=== PATIENT | female | born 1935 | race African-American/Black ===

== ENCOUNTER 2018-06-30 04:58 | Emergency (ER) | payer MEDICARE ==
[~2018-06-30] VITALS: Ht 157.5 cm; Wt 67.1 kg
--- OUTSIDE RECORDS SUMMARY | 2018-06-30 05:00 | XMS REPORT | Clinical Summary ---
Author Author SHANA [employer] [facility] [employer] [facility] Address Unknown Phone Unavailable Care Team Providers Care Bending Machine Set Up Operator Name Role Phone Ilda Christy MD PCP Allergies No Known Allergies Medications End Date Status Medication Sig Dispensed Refills Start Date Active amLODIPine (NORVASC) 10 Take 10 mg by 0 MG tablet mouth daily. Active atenolol (TENORMIN) 50 MG Take 50 mg by 0 tablet mouth 2 (two) times daily . Active flecainide (TAMBOCOR) 100 Take 100 mg 0 MG tablet by mouth 2 (two) times daily. Active pravastatin (PRAVACHOL) Take 80 mg by 0 80 MG tablet mouth daily. Active warfarin (COUMADIN) 2.5 Take 2.5 mg 0 MG tablet by mouth daily Every Tuesday, Tuesday, Tuesday, tue and tuesday . Active warfarin (COUMADIN) 5 MG Take 5 mg by 0 tablet mouth daily. 07/08/2018 Active acetaminophen-codeine Take 1 tablet 30 tablet 0 (TYLENOL #3) 300-30 mg by mouth 9 per tablet every 4 (four) hours as needed for up to 10 days. Max Daily Amount: 6 tablets Active Problems Problem Noted Date Periumbilical mass 06/28/2018 Biliary colic 12/26/2013 Encounters Care Team Description Date Type Specialty Bipin Cadet MD BIOPSY/EXCISION,SOFT TISSUE TORSO ANTERIOR 06/28/2018 Surgery Shyla Vergara MD 06/28/2018 Anesthesia Event Bipin Cadet MD 06/28/2018 Hospital Encounter Resource, Oqia Preadmit Phone 06/21/2018 Hospital Pre-Admission Testing Encounter after 06/29/2017 Social History Date Tobacco Use Types Packs/Day Years Used Quit: 2013 Former Smoker 0.5 55 Smokeless Tobacco: Never Used Tobacco Cessation: Ready to Quit: No; Counseling Given: Yes Alcohol Use Drinks/Week oz/Week Comments No Sex Assigned at Date Recorded Not on file Industry Job Start Date Occupation Not on file Not on file Not on file Travel End Travel History Travel Start No recent travel history available. Last Filed Vital Signs Time Taken Vital Sign Reading 06/28/2018 11:35 AM CDT Blood Pressure 142/71 06/28/2018 11:35 AM CDT Pulse 53 06/28/2018 11:35 AM CDT Temperature 36.2 C (97.2 F) 06/28/2018 11:35 AM CDT Respiratory Rate 16 06/28/2018 11:35 AM CDT Oxygen Saturation 94% - Inhaled Oxygen - Concentration 06/28/2018 8:02 AM CDT Weight 58.1 kg (128 lb 1.6 oz) 06/28/2018 8:02 AM CDT Height 157.5 cm (5' 2") 06/28/2018 8:02 AM CDT Body Mass Index 23.43 Plan of Treatment Not on file Procedures Comments Procedure Name Priority Date/Time Associated Diagnosis BIOPSY/EXCISION,SOFT 06/28/2018 Abdominal wall mass TISSUE TORSO ANTERIOR 8:45 AM CDT after 06/29/2017 Results Not on fileafter 06/29/2017 Insurance Payer Benefit Subscriber ID Type Phone Address Plan / Group [facility] xxxxxxxxxxx MEDICARE ADV Advance Directives For more information, please contact: [facility] [address] [place] [address] Date Inactivated Comments Code Status Date Activated 06/28/2018 2:34 PM Full Code 06/28/2018 7:49 AM This code status was determined by: Patient 12/26/2013 2:31 PM Full Code 12/26/2013 7:34 AM This code status was determined by: Patient
[2018-06-30] MEDS ORDERED: PANTOPRAZOLE 40 MG 10ML VIAL IV STA (05:19)
[2018-06-30] MEDS ORDERED: SODIUM CHLORIDE 0.9% 1000ML 1,000 ML IV STA (05:19)
[2018-06-30] MEDS ORDERED: ONDANSETRON HCL INJ 2MG/ML 2ML 2 MG/ML VIAL IV STA (05:19)
[2018-06-30] MEDS ORDERED: PANTOPRAZOL 40MG/SOD CHL 0.9% 50 ML IV ONE (05:44)
[2018-06-30] MEDS ORDERED: DIATRIZOATE MEGL/DIATRIZOA SOD 30 ML BTL PO ONE (05:54)
[2018-06-30 06:09] LABS: BASOPHILS # (AUTO) 0.1 (0.0-0.1); BASOPHILS % 0.6 % (0.0-1.0); EOSINOPHILS # (AUTO) 0.1 (0.0-0.4); EOSINOPHILS % 0.9 % (0.0-6.0); HEMATOCRIT 43.1 % (34.2-44.1); HEMOGLOBIN 13.8 g/dL (12.0-16.0); INR 0.91; LYMPHOCYTES # (AUTO) 2.4 (1.0-3.2); LYMPHOCYTES % 20.2 % (18.0-39.1); MEAN CORPUSCULAR HEMOGLOBIN 28.5 pg (28-32); MONOCYTES % 8.3 % (4.4-11.3); NEUTROPHILS # (AUTO) 8.1 (2.1-6.9); NEUTROPHILS % 69.5 % (38.7-80.0); PLATELET COUNT 360 x10e3/uL (140-360); PROTHROMBIN TIME 12.7 seconds (11.9-14.5); RED BLOOD COUNT 4.84 x10e6/uL (3.6-5.1); RED CELL DISTRIBUTION WIDTH 14.5 % (11.7-14.4)
[2018-06-30 06:10] LABS: PARTIAL THROMBOPLASTIN TIME 30.6 seconds (23.8-35.5)
[2018-06-30 06:14] LABS: BILIRUBIN,URINE NEGATIVE (NEGATIVE); CLARITY,URINE CLEAR (CLEAR); COLOR,URINE YELLOW (YELLOW); KETONES,URINE TRACE (NEGATIVE); LEUKOCYTE ESTERASE ,URINE NEGATIVE (NEGATIVE); NITRITE,URINE NEGATIVE (NEGATIVE); PROTEIN,URINE DIPSTICK NEGATIVE (NEGATIVE); URINE UROBILINOGEN 0.2 mg/dL (0.2 - 1)
[2018-06-30] MEDS ORDERED: METOPROLOL TARTRATE INJ 1 MG/ML VIAL IV NR ×2 (06:15→06:45)
[2018-06-30 06:16] LABS: ALBUMIN 3.7 g/dL (3.5-5.0); ALBUMIN/GLOBULIN RATIO 0.8 (0.8-2.0); ANION GAP 16.8 mmol/L (8-16); CALCIUM 10.4 mg/dL (8.4-10.2); CREATININE, SERUM 1.83 mg/dL (0.57-1.11); MAGNESIUM 2.1 MG/DL (1.3-2.1); POTASSIUM 3.8 mmol/L (3.5-5.1)
[2018-06-30 06:20] LABS: BACTERIA,URINE RARE /HPF; EPITHELIAL CELLS,URINE MODERATE /LPF; RBC,URINE 0-5 /HPF (0-5); WBC,URINE (MAN) 0-5 /HPF (0-5)
[2018-06-30] MEDS ORDERED: FLUTICASONE PRO16 GM (06:41)
[2018-06-30] MEDS ORDERED: AMLODIPINE BESY10 MG PO (06:41)
[2018-06-30] MEDS ORDERED: TYLENOL # 31 EA PO (06:41)
[2018-06-30] MEDS ORDERED: FLONASE (06:41)
[2018-06-30] MEDS ORDERED: OMEPRAZOLE20 MG PO (06:41)
[2018-06-30] MEDS ORDERED: PRAVASTATIN SOD10 MG PO (06:41)
[2018-06-30] MEDS ORDERED: ATENOLOL50 MG PO (06:41)
--- NOTE | 2018-06-30 06:49 | Diagnostic Imaging Report ---
EXAMINATION: CHEST SINGLE (PORTABLE) INDICATION: ^N/V ABD PAIN COMPARISON: None FINDINGS: AP view TUBES and LINES: None. LUNGS: Lungs are well inflated. Patchy airspace opacities bilaterally with platelike atelectasis in the left lung base. PLEURA: No pleural effusion or pneumothorax. HEART AND MEDIASTINUM: The cardiomediastinal silhouette is unremarkable. BONES AND SOFT TISSUES: No acute osseous lesion. Right humeral head deformity. Soft tissues are unremarkable. UPPER ABDOMEN: No free air under the diaphragm. IMPRESSION: Patchy airspace opacities bilaterally especially in the left lung base with platelike atelectasis in the left lung base. This likely represents pneumonia. Signed by: Dr. Brayden Bellamy M.D. on 06/30/2018 6:45 AM
[2018-06-30 06:53] LABS: B-TYPE NATRIURETIC PEPTIDE2 247.3 pg/mL (0-100)
--- NOTE | 2018-06-30 07:00 | NUR ---
ASSUMED CARE AT THIS TIME. PATIENT AWAKE AND ALERT LAYING IN BED. RESP EVEN AND UNLABORED. SKIN WARM AND DRY. NO SIGNS OF ACUTE DISTRESS NOTED AT THIS TIME. DENIES ANY C/O AT THIS TIME.
[2018-06-30] MEDS ORDERED: CEFTRIAXONE SOD 1 GM/NS 50 ML 50 ML IV ONE (07:15)
[2018-06-30] MEDS ORDERED: AZITHROMYCIN 500MG/NS 250 ML 250 ML IV ONE (07:15)
[2018-06-30 07:48] LABS: CREATINE KINASE MB 2.2 ng/mL (0-5.0)
--- NOTE | 2018-06-30 07:59 | NUR ---
Katherine Orosco RN (guidance services coordinator) @ [facility] called with approval at this time. Accepting MD Dr. Asif Espinosa. Pt bed assignment [id number]. #for report [phone].
--- NOTE | 2018-06-30 08:05 | NUR ---
[facility] called for transport at this time. Spoke with Vidal. ETA 45 min
--- NOTE | 2018-06-30 08:24 | NUR ---
REPORT CALLED TO [facility], SPOKE WITH AIMEE,RN @ [facility] ROOM 962 ACCEPTING DOCTOR: DR Asif SEGAL
--- NOTE | 2018-06-30 08:31 | Diagnostic Imaging Report ---
EXAM: CT Abdomen and Pelvis WITHOUT contrast INDICATION: Nausea and vomiting, abdominal pain COMPARISON: None. TECHNIQUE: Abdomen and pelvis were scanned utilizing a multidetector helical scanner from the lung base to the pubic symphysis without administration of IV contrast. Absence of intravenous contrast decreases sensitivity for detection of focal lesions and vascular pathology. Coronal and sagittal reformations were obtained. Routine protocol was performed. Dose modulation, iterative reconstruction, and/or weight based adjustment of the mA/kV was utilized to reduce the radiation dose to as low as reasonably achievable. IV CONTRAST: None. ORAL CONTRAST: 25 cc Gastrografin RADIATION DOSE: Total DLP: 199.78 mGy*cm Estimated effective dose: (DLP x 0.015 x size factor) mSv COMPLICATIONS: None FINDINGS: LINES and TUBES: None. LOWER THORAX: Partially visualized groundglass opacity at the left lung base may represent atelectasis or pneumonia. Heart size normal. Small hiatus hernia. HEPATOBILIARY: There is a calcified granuloma in the liver. No focal hepatic lesions. No biliary ductal dilation. GALLBLADDER: Surgical absence of the gallbladder with cholecystectomy clips. SPLEEN: No splenomegaly. PANCREAS: No focal masses or ductal dilatation. ADRENALS: No adrenal nodules KIDNEYS/URETERS: There is marked left hydronephrosis with dilatation of the ureter that can be traced into the left pelvis near the uterus. Specific etiology of apparent distal ureteral obstruction is not determined. There is cortical scarring of the lateral right kidney with a 1.3 cm hypodensity, with appearance and internal density measurement suggesting cyst. No other contour deforming cystic or solid mass lesions. No stones. GI TRACT: There is diffuse mild distention of small bowel with distal small bowel loops measuring up to 3.2 cm diameter. In the distal jejunum there is a discrete 1.9 cm filling defect in a small bowel loop (series 2, image 42; series 301, image 39) which is indeterminate, likely representing ingested material although small bowel polyp is also a consideration. There is a large volume of stool throughout the colon and rectum. The appendix is not conspicuously identified. There are colonic diverticula with no CT evidence for acute diverticulitis. PELVIC ORGANS/BLADDER: Urinary bladder appears unremarkable. The uterus is retroverted with calcifications suggesting fibroid uterus. No discrete abnormal mass or fluid collection in the pelvis. LYMPH NODES: No dominant lymph node mass is seen in the abdomen, retroperitoneum or pelvis, VESSELS: The abdominal aorta is atherosclerotic with extensive calcified plaque distally and extending into the iliac arteries. No abdominal aortic aneurysm. PERITONEUM / RETROPERITONEUM: No pneumoperitoneum or ascites. BONES: No acute or suspicious bony lesions. Degenerative changes are seen in the lumbar spine. Lumbar scoliosis is noted. SOFT TISSUES: Superficial surrounding soft tissue shows an apparent left femoral hernia containing fat. In the anterior midline lower abdomen and pelvis there is subcutaneous stranding and subcutaneous air likely related to recent surgery. No discrete drainable fluid collection is seen. IMPRESSION: 1. Diffuse small bowel distention with large volume of stool throughout the colon. In view of history of recent surgery, this likely represents small bowel ileus, less likely early distal obstruction. Correlation with clinical findings suggested. 2. Marked left hydronephrosis and dilatation of the left ureter traced to the pelvic level near the uterus. Etiology of apparent distal ureteral obstruction is not determined. 3. 1.9 cm filling defect in distal jejunal loop may be related to ingested material or small bowel polyp. 4. Airspace opacity at the left lung base may represent atelectasis or pneumonia. 5. Small left femoral hernia containing fat. 6. Subcutaneous air in the anterior midline lower abdomen and pelvis likely related to recent surgery. Correlation with surgical history recommended. Staff: [place] Signed by: Dr. Scott Nieto M.D. on 06/30/2018 8:27 AM
--- NOTE | 2018-06-30 08:56 | NUR ---
EMS arrival at this time.
[2018-06-30 09:04] VITALS: BP 125/85
--- NOTE | 2018-06-30 09:05 | NUR ---
Face sheet and MOT faxed to the transfer center @[phone]
== END 2018-06-30 09:09 | disposition short-term general hospital (02) ==
LOC: ER 04:58
DX: R10.84 Generalized abdominal pain (principal); R11.2 Nausea with vomiting, unspecified; J15.9 Unspecified bacterial pneumonia; N28.9 Disorder of kidney and ureter, unspecified; I48.0 Paroxysmal atrial fibrillation
CPT/HCPCS: 36415; 71045; 74176; 80053; 81001; 82550; 82553; 83605; 83690; 83735; 83880; 84484; 85025; 85610; 85730; 87040; 87086; 93005; 96374; 99284; J0456; J0696; J2405; J7030

== ENCOUNTER 2018-08-15 10:14 | Emergency (ER) | payer MEDICARE ==
[~2018-08-15] VITALS: Ht 157.5 cm; Wt 67.1 kg
[~2018-08-15 10:14] MED LIST: AMLODIPINE BESY10 MG PO; ATENOLOL50 MG PO; FLONASE; FLUTICASONE PRO16 GM; OMEPRAZOLE20 MG PO; PRAVASTATIN SOD10 MG PO; TYLENOL # 31 EA PO
--- OUTSIDE RECORDS SUMMARY | 2018-08-15 10:17 | XMS REPORT | Clinical Summary ---
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 Active pravastatin (PRAVACHOL) Take 80 mg by 0 80 MG tablet mouth daily. Active omeprazole (PRILOSEC) 20 Take 20 mg by 0 MG capsule mouth daily. Active traMADol (ULTRAM) 50 mg Take 50 mg by 0 tablet mouth 2 (two) times daily as needed for Pain. Active loratadine (CLARITIN) 10 Take 10 mg by 0 mg tablet mouth daily as needed for Allergies. Active fluticasone (FLONASE) 50 1 spray by 0 mcg/actuation nasal spray Nasal route daily as needed for Rhinitis. Active flecainide (TAMBOCOR) 100 Take 0.5 0 201 MG tablet tablets (50 9 mg total) by mouth 2 (two) times daily. Active warfarin (COUMADIN) 5 MG Take 2 0 201 tablet tablets (10 9 mg total) by mouth daily 7.5 mg daily except Tuesday and . 5 mg on Tuesday and . Active bisacodyl (DULCOLAX) 10 Place 1 0 mg suppository suppository 9 (10 mg total) rectally daily as needed (for constipation) . Active docusate sodium (COLACE) Take 1 0 100 MG capsule capsule (100 9 mg total) by mouth 3 (three) times daily Do not give if diarrhea present. Active polyethylene glycol Take 17 g by 0 (GLYCOLAX) 17 gram packet mouth daily 9 Do not give if diarrhea present. 07/12/2018 Discontinued amLODIPine (NORVASC) 10 Take 10 mg by 0 MG tablet mouth daily. 07/12/2018 Discontinued flecainide (TAMBOCOR) 100 Take 100 mg 0 MG tablet by mouth 2 (two) times daily. 06/30/2018 Discontinued warfarin (COUMADIN) 2.5 Take 2.5 mg 0 MG tablet by mouth daily Every Tuesday, Tuesday, Tuesday, tue and tuesday . 06/30/2018 Discontinued warfarin (COUMADIN) 5 MG Take 5 mg by 0 tablet mouth daily. 06/30/2018 Discontinued acetaminophen-codeine Take 1 tablet 30 tablet 0 (TYLENOL #3) 300-30 mg by mouth 9 per tablet every 4 (four) hours as needed for up to 10 days. Max Daily Amount: 6 tablets 07/12/2018 Discontinued warfarin (COUMADIN) 5 MG Take 5 mg by 0 tablet mouth 7.5 mg daily except Tuesday and . 5 mg on Tuesday and . Active Problems Problem Noted Date Gastroesophageal reflux disease without esophagitis 07/27/2018 Acute abdominal pain 07/24/2018 Physical deconditioning 07/10/2018 Uterine mass 07/03/2018 SBO (small bowel obstruction) (HCC) resolved 06/30/2018 Paroxysmal atrial fibrillation with rapid ventricular response 06/30/2018 Hydronephrosis of left kidney 06/30/2018 Hydroureter, left 06/30/2018 Intractable vomiting with nausea 06/30/2018 Periumbilical mass s/p excision on 06/28/18 06/30/2018 Essential hypertension 06/30/2018 Hyperlipidemia 06/30/2018 History of transient ischemic attack (TIA) 06/30/2018 Bilateral atelectasis 06/30/2018 ANTHONY (acute kidney injury) 06/30/2018 CKD (chronic kidney disease) stage 3, GFR 30-59 ml/min 06/30/2018 Resolved Problems Problem Noted Date Resolved Date Periumbilical mass 06/28/2018 06/30/2018 Biliary colic 12/26/2013 06/30/2018 Encounters Care Team Description Date Type Specialty Rohit Wright MD Dhir, MD Megan Browning Rosemary, MD Acute abdominal pain (Primary Dx); Small bowel obstruction (HCC); Non-intractable vomiting with nausea, unspecified vomiting type; S/P abdominal surgery, follow-up exam 07/24/2018 [facility] General Internal Medicine - Encounter 07/27/2018 07/24/2018 Travel Neetu Vang MD Results 07/18/2018 Telephone Obstetrics and Gynecology Edda Blair MD 07/05/2018 Anesthesia Event Denis Vanegas MD CYSTOSCOPY 07/05/2018 Surgery Gopal Espinosa MD Quadri, Syed M., MD 06/30/2018 [facility] General Internal Medicine - Encounter 07/12/2018 06/30/2018 Travel 06/30/2018 Orders Only General Internal Medicine Oleksandr Cadet MD BIOPSY/EXCISION,SOFT TISSUE TORSO ANTERIOR 06/28/2018 Surgery Shyla Vergara MD 06/28/2018 Anesthesia Event Oleksandr Cadet MD 06/28/2018 Hospital Encounter Resource, Omt Preadmit Phone 06/21/2018 Hospital Pre-Admission Testing Encounter after 08/14/2017 Social History Date Tobacco Use Types Packs/Day [...] Vital Signs Time Taken Vital Sign Reading 07/27/2018 1:55 PM CDT Blood Pressure 107/52 07/27/2018 1:55 PM CDT Pulse 60 07/27/2018 1:55 PM CDT Temperature 36.1 C (97 F) 07/27/2018 1:55 PM CDT Respiratory Rate 18 07/27/2018 1:55 PM CDT Oxygen Saturation 99% - Inhaled Oxygen - Concentration 07/24/2018 1:21 AM CDT Weight 56.7 kg (125 lb) 07/24/2018 1:21 AM CDT Height 157.5 cm (5' 2") 07/24/2018 1:21 AM CDT Body Mass Index 22.86 Plan of Treatment Not on file Procedures Comments Procedure Name Priority Date/Time Associated Diagnosis RHYTHM STRIP - SCAN 07/31/2018 8:20 AM CDT BASIC METABOLIC PANEL (7) Routine 07/27/2018 1:23 PM CDT CBC W/PLT COUNT & AUTO Routine 07/27/2018 DIFFERENTIAL 5:12 AM CDT PROTHROMBIN TIME/INR Routine 07/27/2018 5:12 AM CDT CBC W/PLT COUNT & AUTO Routine 07/27/2018 DIFFERENTIAL 5:12 AM CDT BASIC METABOLIC PANEL (7) Routine 07/27/2018 5:12 AM CDT PROTHROMBIN TIME/INR Routine 07/26/2018 6:59 AM CDT MAGNESIUM Routine 07/26/2018 6:58 AM CDT BASIC METABOLIC PANEL (7) Routine 07/26/2018 6:58 AM CDT CBC W/PLT COUNT & AUTO Routine 07/25/2018 DIFFERENTIAL 3:52 AM CDT PROTHROMBIN TIME/INR Routine 07/25/2018 3:52 AM CDT CBC W/PLT COUNT & AUTO Routine 07/25/2018 DIFFERENTIAL 3:52 AM CDT BASIC METABOLIC PANEL (7) Routine 07/25/2018 3:52 AM CDT PHOSPHORUS Routine 07/24/2018 3:17 PM CDT MAGNESIUM Routine 07/24/2018 3:17 PM CDT PROTHROMBIN TIME/INR Routine 07/24/2018 8:42 AM CDT PT/APTT Routine 07/24/2018 8:42 AM CDT URINALYSIS W/ MICROSCOPIC STAT 07/24/2018 2:[address] ABDOMEN/PELVIS WITHOUT STAT 07/24/2018 IV CONTRAST 2:06 AM CDT CBC W/PLT COUNT & AUTO STAT 07/24/2018 DIFFERENTIAL 1:47 AM CDT BILIRUBIN, ADULT TOTAL STAT 07/24/2018 1:47 AM CDT LIPASE STAT 07/24/2018 1:47 AM CDT AST (SGOT) STAT 07/24/2018 1:47 AM CDT ALT (SGPT) STAT 07/24/2018 1:47 AM CDT CBC W/PLT COUNT & AUTO STAT 07/24/2018 DIFFERENTIAL 1:47 AM CDT BASIC METABOLIC PANEL (7) STAT 07/24/2018 1:47 AM CDT RHYTHM STRIP - SCAN 07/13/2018 1:31 PM CDT REPORT OF PROCEDURE - 07/13/2018 ENDOSCOPY SCAN 1:31 PM CDT RHYTHM STRIP - SCAN 07/13/2018 1:31 PM CDT RHYTHM STRIP - SCAN 07/13/2018 12:14 PM CDT BASIC METABOLIC PANEL (7) Routine 07/12/2018 4:47 AM CDT PROTHROMBIN TIME/INR Routine 07/12/2018 4:47 AM CDT POCT-GLUCOSE METER Routine 07/11/2018 9:47 PM CDT XR ABDOMEN 2 VIEWS FLAT STAT 07/11/2018 AND UPRIGHT 8:09 PM CDT BASIC METABOLIC PANEL (7) Routine 07/11/2018 3:50 AM CDT PROTHROMBIN TIME/INR Routine 07/11/2018 3:50 AM CDT CBC W/PLT COUNT & AUTO STAT 07/10/2018 DIFFERENTIAL 9:21 AM CDT CBC W/PLT COUNT & AUTO STAT 07/10/2018 DIFFERENTIAL 9:21 AM CDT BASIC METABOLIC PANEL (7) Routine 07/10/2018 4:12 AM CDT PROTHROMBIN TIME/INR Routine 07/10/2018 4:12 AM CDT CBC W/PLT COUNT & AUTO Routine 07/09/2018 DIFFERENTIAL 6:01 AM CDT BASIC METABOLIC PANEL (7) Routine 07/09/2018 6:01 AM CDT PROTHROMBIN TIME/INR Routine 07/09/2018 6:01 AM CDT CBC W/PLT COUNT & AUTO Routine 07/09/2018 DIFFERENTIAL 6:01 AM CDT SODIUM, RANDOM URINE Routine 07/08/2018 9:58 PM CDT CREATININE, RANDOM URINE Routine 07/08/2018 9:58 PM CDT OSMOLALITY, URINE Routine 07/08/2018 9:58 PM CDT CBC W/PLT COUNT & AUTO Routine 07/08/2018 DIFFERENTIAL 4:16 AM CDT BASIC METABOLIC PANEL (7) Routine 07/08/2018 4:16 AM CDT CBC W/PLT COUNT & AUTO Routine 07/08/2018 DIFFERENTIAL 4:16 AM CDT FERRITIN Routine 07/08/2018 4:16 AM CDT IRON, TIBC, % SAT. Routine 07/08/2018 (WITHOUT FERRITIN) 4:16 AM CDT VITAMIN D, 25-HYDROXY Routine 07/08/2018 4:16 AM CDT PTH, INTACT Routine 07/08/2018 4:16 AM CDT OSMOLALITY, SERUM Routine 07/08/2018 4:16 AM CDT PHOSPHORUS Routine 07/08/2018 4:16 AM CDT PROTHROMBIN TIME/INR Routine 07/08/2018 4:16 AM CDT PT/APTT Routine 07/07/2018 2:24 AM CDT BASIC METABOLIC PANEL (7) Routine 07/07/2018 2:24 AM CDT PROTHROMBIN TIME/INR Routine 07/07/2018 2:24 AM CDT IR PERCUTANEOUS Routine 07/06/2018 NEPHROSTOMY TUBE 9:45 PM CDT PLACEMENT CBC W/PLT COUNT & AUTO STAT 07/06/2018 DIFFERENTIAL 9:06 AM CDT PT/APTT STAT 07/06/2018 9:06 AM CDT CBC W/PLT COUNT & AUTO STAT 07/06/2018 DIFFERENTIAL 9:06 AM CDT BASIC METABOLIC PANEL (7) STAT 07/06/2018 9:06 AM CDT APTT Routine 07/06/2018 9:06 AM CDT PROTHROMBIN TIME/INR Routine 07/06/2018 5:55 AM CDT TISSUE EXAM AP Routine 07/05/2018 8:30 PM CDT 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 Routine 07/05/2018 MINUTE INCREMENTS 7:44 PM CDT HYSTEROSCOPY 07/05/2018 Ureteral obstruction, 1:30 PM CDT left Special Needs REQ TF, CASE NEEDS TO BE DONE IN OR 2 CYSTOSCOPY 07/05/2018 Ureteral obstruction, 1:30 PM CDT left Special Needs REQ TF, CASE NEEDS TO BE DONE IN OR 2 OCCULT BLOOD, STOOL Routine 07/05/2018 4:57 AM CDT CBC W/PLT COUNT & AUTO Routine 07/05/2018 DIFFERENTIAL 4:53 AM CDT APTT Routine 07/05/2018 4:53 AM CDT PROTHROMBIN TIME/INR Routine 07/05/2018 4:53 AM CDT MAGNESIUM Routine 07/05/2018 4:53 AM CDT BASIC METABOLIC PANEL (7) Routine 07/05/2018 4:53 AM CDT CBC W/PLT COUNT & AUTO Routine 07/05/2018 DIFFERENTIAL 4:53 AM CDT APTT Routine 07/04/2018 9:17 PM CDT US ENDOVAGINAL EV STAT 07/04/2018 1:15 PM CDT APTT Routine 07/04/2018 10:31 AM CDT CBC W/PLT COUNT & AUTO Routine 07/04/2018 DIFFERENTIAL 4:10 AM CDT APTT Routine 07/04/2018 4:10 AM CDT CBC W/PLT COUNT & AUTO Routine 07/04/2018 DIFFERENTIAL 4:10 AM CDT MAGNESIUM Routine 07/04/2018 4:10 AM CDT BASIC METABOLIC PANEL (7) Routine 07/04/2018 4:10 AM CDT PROTHROMBIN TIME/INR Routine 07/04/2018 4:10 AM CDT APTT Routine 07/03/2018 6:47 PM CDT APTT Timed 07/03/2018 1:10 PM CDT URINALYSIS W/ MICROSCOPIC FERNANDO 07/03/2018 7:55 AM CDT APTT Routine 07/03/2018 5:17 AM CDT PROTHROMBIN TIME/INR Routine 07/03/2018 5:17 AM CDT MAGNESIUM Routine 07/03/2018 5:17 AM CDT BASIC METABOLIC PANEL (7) Routine 07/03/2018 5:17 AM CDT APTT Routine 07/02/2018 9:04 PM CDT MR PELVIS WITHOUT IV Routine 07/02/2018 CONTRAST 6:27 PM CDT MR ABDOMEN WITHOUT IV Routine 07/02/2018 CONTRAST 6:27 PM CDT APTT Routine 07/02/2018 12:17 PM CDT CBC W/PLT COUNT & AUTO Routine 07/02/2018 DIFFERENTIAL 4:16 AM CDT APTT Routine 07/02/2018 4:16 AM CDT PROTHROMBIN TIME/INR Routine 07/02/2018 4:16 AM CDT B-TYPE NATRIURETIC FACTOR Routine 07/02/2018 (BNP) 4:16 AM CDT MAGNESIUM Routine 07/02/2018 4:16 AM CDT BASIC METABOLIC PANEL (7) Routine 07/02/2018 4:16 AM CDT CBC W/PLT COUNT & AUTO Routine 07/02/2018 DIFFERENTIAL 4:16 AM CDT APTT Routine 07/01/2018 9:39 PM CDT APTT Routine 07/01/2018 1:07 PM CDT CBC W/PLT COUNT & AUTO Routine 07/01/2018 DIFFERENTIAL 5:21 AM CDT CBC W/PLT COUNT & AUTO Routine 07/01/2018 DIFFERENTIAL 5:21 AM CDT MAGNESIUM Routine 07/01/2018 5:21 AM CDT PT/APTT Routine 07/01/2018 5:21 AM CDT BASIC METABOLIC PANEL (7) Routine 07/01/2018 5:21 AM CDT APTT Routine 06/30/2018 11:54 PM CDT CBC W/PLT COUNT & AUTO STAT 06/30/2018 DIFFERENTIAL 1:08 PM CDT CBC W/PLT COUNT & AUTO STAT 06/30/2018 DIFFERENTIAL 1:08 PM CDT APTT Routine 06/30/2018 1:08 PM CDT PT/APTT STAT 06/30/2018 1:08 PM CDT BASIC METABOLIC PANEL (7) STAT 06/30/2018 1:08 PM CDT ECG 12-LEAD Routine 06/30/2018 12:35 PM CDT Procedure Note - Interface, External Ris In - 06/30/2018 12:41 PM CDT Ventricula r Rate 94 BPM Atrial Rate 326 BPM QRS Duration 82 ms Q-T Interval 362 ms QTC Calculatio n(Bazett) 452 ms R Poth 1 degrees T Poth 16 degrees Atrial fibrillati on Nonspecifi c T wave abnormalit y Abnormal ECG No previous ECGs available ECG 12-LEAD Routine 06/30/2018 12:35 PM CDT TISSUE EXAM AP Routine 06/28/2018 9:03 AM CDT BIOPSY/EXCISION,SOFT 06/28/2018 Abdominal wall mass TISSUE TORSO ANTERIOR 8:45 AM CDT after 08/14/2017 Results * RHYTHM STRIP - SCAN (07/31/2018 8:20 AM CDT) Only the most recent of 4 results within the time period is included. Narrative Performed At * Basic Metabolic Panel (07/27/2018 1:23 PM CDT) Only the most recent of 18 results within the time period is included. Sodium 142 136 - 145 meq/L [facility] Potassium 3.6 3.5 - 5.1 meq/L [facility] Chloride 109 (H) 98 - 107 meq/L [facility] CO2 25 22 - 29 meq/L [facility] BUN 28 (H) 7 - 21 mg/dL [facility] Creatinine 1.34 (H) 0.57 - 1.25 mg/dL [facility] Glucose 126 (H) 70 - 105 mg/dL [facility] Calcium 9.0 8.4 - 10.2 mg/dL [facility] EGFR 46Comment: ESTIMATED GFR IS mL/min/1.73 sq m [facility] NOT ACCURATE CREATININE [facility] CLEARANCE IN PREDICTING GLOMERULAR FILTRATION RATE. ESTIMATED GFR IS NOT APPLICABLE FOR DIALYSIS PATIENTS. Specimen Blood Performing Organization Address City/State/Zipcode Phone Number [facility] [phone] [place] [address] [facility] * CBC with platelet count + automated diff (07/27/2018 5:12 AM CDT) Only the most recent of 12 results within the time period is included. WBC 8.8 3.5 - 10.5 K/L [facility] RBC 3.54 (L) 3.93 - 5.22 M/L [facility] Hemoglobin 10.2 (L) 11.2 - 15.7 GM/DL [facility] Hematocrit 32.8 (L) 34.1 - 44.9 % [facility] MCV 92.7 79.4 - 94.8 fL [facility] MCH 28.8 25.6 - 32.2 pg [facility] MCHC 31.1 (L) 32.2 - 35.5 GM/DL [facility] RDW 15.0 (H) 11.7 - 14.4 % [facility] Platelets 327 150 - 450 K/CU MM [facility] MPV 10.8 9.4 - 12.3 fL [facility] nRBC 0 0 - 0 /100 WBC [facility] % Neutros 49 % [facility] % Lymphs 32 % [facility] % Monos 10 % [facility] % Eos 8 % [facility] % Baso 1 % [facility] # Neutros 4.34 1.56 - 6.13 K/L [facility] # Lymphs 2.83 1.18 - 3.74 K/L [facility] # Monos 0.84 (H) 0.24 - 0.36 K/L [facility] # Eos 0.67 (H) 0.04 - 0.36 K/L [facility] # Baso 0.06 0.01 - 0.08 K/L [facility] Immature 1 0 - 1 % [facility] Granulocytes-Relative [facility] Specimen Blood Performing Organization Address City/[facility] Phone Number [place] [phone] [place] [address] [facility] * Daily Prothrombin time/INR while on warfarin (07/27/2018 5:12 AM CDT) Only the most recent of 15 results within the time period is included. Protime 24.2 (H) 11.7 - 14.7 seconds [facility] INR 2.3 <=5.9 [facility] Specimen Blood Narrative Performed At RECOMMENDED COUMADIN/WARFARIN INR THERAPY RANGES [facility] STANDARD DOSE: 2.0 - 3.0 Includes: PROPHYLAXIS for venous thrombosis, [facility] systemic embolization; TREATMENT for venous thrombosis and/or pulmonary embolus. HIGH RISK: Target INR is 2.5-3.5 for patients with mechanical heart valves. While on warfarin. Performing Organization Address City/[facility] Phone Number [facility] [phone] [place] [address] [facility] * Magnesium (07/26/2018 6:58 AM CDT) Only the most recent of 7 results within the time period is included. Magnesium 1.8 1.6 - 2.6 mg/dL [facility] Specimen Blood Performing Organization Address City/[facility]/[place] [address] [facility] * Phosphorus (07/24/2018 3:17 PM CDT) Only the most recent of 2 results within the time period is included. Phosphorus 3.3Comment: Specimen slightly 2.3 - 4.7 mg/dL [facility] hemolyzed [facility] Specimen Blood Performing Organization Address City/[facility] Phone Number [address] [address] [facility] * PT/aPTT (07/24/2018 8:42 AM CDT) Only the most recent of 5 results within the time period is included. Protime 27.5 (H) 11.7 - 14.7 seconds [facility] INR 2.7 <=5.9 [facility] PTT 42.7 (H) 22.5 - 36.0 seconds [facility] Specimen Blood Narrative Performed At RECOMMENDED COUMADIN/WARFARIN INR THERAPY RANGES [facility] STANDARD DOSE: 2.0 - 3.0 Includes: PROPHYLAXIS for venous thrombosis, [facility] systemic embolization; TREATMENT for venous thrombosis and/or pulmonary embolus. HIGH RISK: Target INR is 2.5-3.5 for patients with mechanical heart valves. Performing Organization Address City/[facility] Phone Number [address] [address] [phone] [place] [address] * Urinalysis w/Microscopic (07/24/2018 2:11 AM CDT) Only the most recent of 2 results within the time period is included. Color, UA Light Yellow [facility] Clarity, UA Clear [facility] Specific [place], UA 1.011 1.001 - 1.035 [facility] pH, UA 7.0 5.0 - 8.0 [facility] Protein, UA Negative Negative [facility] Glucose, UA Negative Negative [facility] Ketones, UA Negative Negative [facility] Bilirubin, UA Negative Negative [facility] Blood, UA Negative Negative [facility] Nitrite, UA Negative Negative [facility] Leukocytes, UA Negative Negative [facility] Urobilinogen, UA 0.2 0.2 - 1.0 mg/dL [facility] RBC, UA <1 /HPF [facility] WBC, UA 3 /HPF [facility] Squam Epithel, UA 1 /HPF [facility] Specimen Source Urine, Clean Catch [facility] Specimen Urine Performing Organization Address City/State/Zipcode Phone Number [facility] [address] [place] [address] [facility] * CT abdomen pelvis without contrast (07/24/2018 2:06 AM CDT) Specimen Narrative Performed At FINAL REPORT [facility] EXAMINATION:CT SCAN OF THE ABDOMEN AND PELVIS CLINICAL HISTORY:Abdominal pain, vomiting COMPARISON EXAM: None TECHNIQUE: Axial noncontrast tomographic images were acquired through the abdomen and pelvis The exam was performed according to our departmental dose optimization program which includes automated exposure control, adjustment of the mA and/or kV according to patient's size and/or use of iterative reconstructive technique. FINDINGS: Thin curvilinear opacities are noted in the dependent portion of both lung bases. Morphology and distribution favor scarring. The heart is mildly enlarged. No evidence of a pericardial effusion. There is a small fluid-filled sliding-type 5 cm hiatal hernia. Small volume of fluid is also noted within the incompletely visualized upstream esophagus. The stomach is distended with a moderate to large volume of fluid. Of proximal loops of small bowel are dilated and fluid-filled. The downstream loops of small bowel are decompressed. A relatively large volume of fluid is noted within the ascending and transverse segments of the colon. A moderate volume of inspissated stool is noted within the more normal caliber left colonic segments. Colonic diverticulosis is noted without definite evidence of diverticulitis. Further characterization the bowel is limited by the absence of enteric contrast. However, no definite evidence of pneumatosis or pneumoperitoneum. A small decompressed tubular fluid and gas filled structure is noted just dorsal to the cecum which may reflect a normal caliber appendix. The gallbladder is absent. No definite evidence of pathologic biliary dilatation. Limited noncontrast images of the liver, spleen and adrenal glands are unremarkable. The pancreas is atrophic with fatty infiltration. There is a left-sided nephroureteral stent with the proximal pigtail in the renal pelvis and the distal pigtail in the bladder. There is mild dilatation of the of several isolated left renal calyces, chronicity and clinical significance indeterminate. Other calyces appear decompressed. No significant perinephric edema. The right renal collecting system is decompressed. The dorsal cortex of the right kidney is associated with a small hypodense nodule with imaging characteristics suggestive of simple cyst. The abdominal aorta is normal in caliber calcific atherosclerotic changes are noted involving the aorta, mesenteric, renal, iliac and visualized femoral arteries. Further characterization the vascular structures is limited by the absence of contrast. 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 More aggressive process cannot be excluded. No evidence of a discrete adnexal mass. The bladder is decompressed. Postoperative changes are noted involving the anterior abdominal wall. Subtle infiltration along the midline incision may reflect associated postoperative change. Infection/cellulitis cannot be excluded. No evidence of an associated organized fluid collection/abscess. No definite evidence of an acute osseous abnormality. IMPRESSION: Abnormal bowel gas pattern as detailed above. Small bowel obstruction should be strongly considered given the transition from dilated to decompressed loops. However, relatively large volume of fluid is also noted in the right colonic segments. Therefore an ileus or impending diarrheal illness would also be considerations. Mildly distended fluid filled hiatal hernia with fluid in the upstream esophagus, possible gastroesophageal reflux related to the abnormal bowel gas pattern detailed above. Patient may benefit from placement of decompressive nasogastric tube. Left nephroureteral stent. Mild dilatation of several isolated left renal calyces of uncertain chronicity or significance. Exam limited by absence of oral and IV contrast. Please see above for additional details. Results discussed with Dr. Kyle. Signed: Leia Rebolledo MD Report Verified Date/Time:07/24/2018 02:52:13 Reading Location: [address] Reading Room Procedure Note Interface, External Ris In - 07/24/2018 2:54 AM CDT FINAL REPORT EXAMINATION: CT SCAN OF THE ABDOMEN AND PELVIS CLINICAL HISTORY:Abdominal pain, vomiting COMPARISON EXAM: None TECHNIQUE: Axial noncontrast tomographic images were acquired through the abdomen and pelvis The exam was performed according to our departmental dose optimization program which includes automated exposure control, adjustment of the mA and/or kV according to patient's size and/or use of iterative reconstructive technique. FINDINGS: Thin curvilinear opacities are noted in the dependent portion of both lung bases. Morphology and distribution favor scarring. The heart is mildly enlarged. No evidence of a pericardial effusion. There is a small fluid-filled sliding-type 5 cm hiatal hernia. Small volume of fluid is also noted within the incompletely visualized upstream esophagus. The stomach is distended with a moderate to large volume of fluid. Of proximal loops of small bowel are dilated and fluid-filled. The downstream loops of small bowel are decompressed. A relatively large volume of fluid is noted within the ascending and transverse segments of the colon. A moderate volume of inspissated stool is noted within the more normal caliber left colonic segments. Colonic diverticulosis is noted without definite evidence of diverticulitis. Further characterization the bowel is limited by the absence of enteric contrast. However, no definite evidence of pneumatosis or pneumoperitoneum. A small decompressed tubular fluid and gas filled structure is noted just dorsal to the cecum which may reflect a normal caliber appendix. The gallbladder is absent. No definite evidence of pathologic biliary dilatation. Limited noncontrast images of the liver, spleen and adrenal glands are unremarkable. The pancreas is atrophic with fatty infiltration. There is a left-sided nephroureteral stent with the proximal pigtail in the renal pelvis and the distal pigtail in the bladder. There is mild dilatation of the of several isolated left renal calyces, chronicity and clinical significance indeterminate. Other calyces appear decompressed. No significant perinephric edema. The right renal collecting system is decompressed. The dorsal cortex of the right kidney is associated with a small hypodense nodule with imaging characteristics suggestive of simple cyst. The abdominal aorta is normal in caliber calcific atherosclerotic changes are noted involving the aorta, mesenteric, renal, iliac and visualized femoral arteries. Further characterization the vascular structures is limited by the absence of contrast. 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 More aggressive process cannot be excluded. No evidence of a discrete adnexal mass. The bladder is decompressed. Postoperative changes are noted involving the anterior abdominal wall. Subtle infiltration along the midline incision may reflect associated postoperative change. Infection/cellulitis cannot be excluded. No evidence of an associated organized fluid collection/abscess. No definite evidence of an acute osseous abnormality. IMPRESSION: Abnormal bowel gas pattern as detailed above. Small bowel obstruction should be strongly considered given the transition from dilated to decompressed loops. However, relatively large volume of fluid is also noted in the right colonic segments. Therefore an ileus or impending diarrheal illness would also be considerations. Mildly distended fluid filled hiatal hernia with fluid in the upstream esophagus, possible gastroesophageal reflux related to the abnormal bowel gas pattern detailed above. Patient may benefit from placement of decompressive nasogastric tube. Left nephroureteral stent. Mild dilatation of several isolated left renal calyces of uncertain chronicity or significance. Exam limited by absence of oral and IV contrast. Please see above for additional details. Results discussed with Dr. Wright. Signed: Leia Rebolledo MD Report Verified Date/Time: 07/24/2018 02:52:13 Reading Location: [address] Reading Room Performing Organization Address [facility] Phone Number [facility] * ALT (SGPT) (07/24/2018 1:47 AM CDT) ALT 10 6 - 55 U/L [facility] Specimen Blood Performing Organization Address [facility]/Zipcode Phone Number [facility] [address] [place] [address] MED[facility] * AST (SGOT) (07/24/2018 1:47 AM CDT) AST 18 5 - 34 U/L [facility] Specimen Blood Performing Organization Address [facility]/Zipcode Phone Number [address] [address] [phone] [address] * Lipase (07/24/2018 1:47 AM CDT) Lipase 14 8 - 78 U/L [facility] Specimen Blood Performing Organization Address [facility] Phone Number [address] [address] [phone] * Bilirubin, adult total (07/24/2018 1:47 AM CDT) Total Bilirubin 0.4 0.2 - 1.2 mg/dL [facility] Specimen Blood Performing Organization Address [facility] Phone Number [address] * EKG-SCANNED (07/13/2018 1:31 PM CDT) Narrative Performed At * POC-Glucose meter (07/11/2018 9:47 PM CDT) POC-Glucose Meter 122 (H)Comment: TESTED AT 70 - 110 mg/dL [address] [address] Specimen Blood Performing Organization Address [facility] Phone Number [address] [address] [phone] [address] * XR abdomen 2 views flat and upright (07/11/2018 8:09 PM CDT) Specimen Narrative Performed At FINAL REPORT [facility] CLINICAL HISTORY: Abdominal distention COMPARISON: None. FINDINGS: 3 upright and supine views of the abdomen are submitted. The abdominal bowel gas pattern is nonspecific but grossly unobstructed. There is no focus of gas dilated large or small bowel. There is a normal volume of stool and gas in normal caliber large intestine. No free air seen under the diaphragm. Post cystectomy clips overlie the right upper quadrant. A left-sided nephroureteral stent is in place. Vascular calcifications are present in the abdomen and pelvis. There is sigmoid thoracolumbar scoliosis. Signed: Nick Velez MD Report Verified Date/Time:07/11/2018 20:44:20 Reading Location: [address] Reading Room Procedure Note Interface, External Ris In - 07/11/2018 8:46 PM CDT FINAL REPORT CLINICAL HISTORY: Abdominal distention COMPARISON: None. FINDINGS: 3 upright and supine views of the abdomen are submitted. The abdominal bowel gas pattern is nonspecific but grossly unobstructed. There is no focus of gas dilated large or small bowel. There is a normal volume of stool and gas in normal caliber large intestine. No free air seen under the diaphragm. Post cystectomy clips overlie the right upper quadrant. A left-sided nephroureteral stent is in place. Vascular calcifications are present in the abdomen and pelvis. There is sigmoid thoracolumbar scoliosis. Signed: Nick Velez MD Report Verified Date/Time: 07/11/2018 20:44:20 Reading Location: [address] Reading Room Performing Organization Address City/[facility] Phone Number [facility] * Sodium, random urine (07/08/2018 9:58 PM CDT) Sodium Urine 20 meq/L [facility] Specimen Urine - Urine, Nephrostomy Narrative Performed At Reference Range: No Normals [facility] Performing Organization Address [facility] Phone Number [place] [phone] * Osmolality, urine (07/08/2018 9:58 PM CDT) Osmolality, Ur 372 40-1,400 mOsm/kg [facility] Specimen Urine - Urine, Nephrostomy Performing Organization Address [facility] Phone Number [place] [phone] * Creatinine, random urine (07/08/2018 9:58 PM CDT) Creatinine, Ur 154.8 mg/dL [facility] Specimen Urine - Urine, Nephrostomy Narrative Performed At Reference Range: No Normals [facility] Performing Organization Address [facility] Phone Number [place] [phone] [place] [address] * Iron, TIBC, % sat. (without ferritin) (07/08/2018 4:16 AM CDT) Iron 22.0 (L) 40.0 - 160.0 ug/dL [facility] TIBC 244 (L) 250 - 450 ug/dL [facility] Iron % Saturation 9 (L) 20 - 55 % [facility] Specimen Blood Performing Organization Address [facility] Phone Number [place] [phone] [place] [address] * Vitamin D, 25-Hydroxy (07/08/2018 4:16 AM CDT) Vitamin D 25-Hydroxy 27.8 6.6 - 49.9 ng/mL [facility] Specimen Blood Narrative Performed At Effective 12/29/2016: Reference Range Change [facility] New: 6.6-49.9 ng/mL Previous: 13.0-47.8 ng/mL [facility] Recommended Vitamin D Target Range: 30.0-40.0 ng/mL Performing Organization Address City/[facility] Phone Number [place] [phone] [place] [address] * PTH, intact (07/08/2018 4:16 AM CDT) PTH 73.4 (H) 8.5 - 72.5 pg/mL [facility] Specimen Blood Performing Organization Address [facility] Phone Number [address] [address] [facility] * Osmolality, serum (07/08/2018 4:16 AM CDT) Osmolality Serum 297 (H) 275 - 295 mOsm/kg [facility] Specimen Blood Performing Organization Address City/State/Zipcode Phone Number [facility] [address] [place] [address] [facility] * Ferritin (07/08/2018 4:16 AM CDT) Ferritin 258 5 - 275 ng/mL [facility] Specimen Blood Performing Organization Address City/[facility]/Zipcode Phone Number [facility] [address] [place] [address] [facility] * IR Percutaneous Nephrostomy - Ext. Drain Placement (07/06/2018 9:45 PM CDT) Specimen Narrative Performed At FINAL REPORT [facility] Procedure: Left percutaneous nephrostomy with placement of internal/external nephroureteral stent, 07/06/2018 HISTORY: Ureteral obstruction with hydronephrosis Anesthesia: 2% lidocaine Sedation: 1 mg Versed, 50 mcg fentanyl, moderate conscious sedation, monitored by the registered nurse. Sedation time: 40 minutes Approach: Left lower pole kidney Modality: Ultrasound and fluoroscopy, fluoroscopy time: Six minutes, total dose: 125 mGy, reference air method TECHNIQUE: After obtaining written informed consent, this procedure was performed using all elements maximal sterile barrier technique without untoward effect. Ultrasound was used to identify left kidney. Hydronephrosis is present. A lower pole calyx was identified and the skin overlying this site was anesthetized. A 21-gauge needle was inserted under real-time ultrasound guidance into the posterior inferior lower pole calyx. A guidewire was advanced centrally with fluoroscopic control. The needle was removed and a sheath was placed into the collecting system. Based steerable catheter and guidewire combination were advanced into the ureter. There was considerable tortuosity of the ureter as well as identification of a complete obstruction at the pelvic brim which did not permit flow of contrast. The obstruction was eventually traversed successfully and a guidewire was placed into the bladder. An 8.5 English internal/external nephroureteral stent was then introduced over the guidewire and placed with its tip in the bladder. The proximal loop was coiled in the renal pelvis and the catheter was left to external drainage overnight. CONCLUSION: Indeterminate distal ureteral obstruction. Successful placement of nephroureteral stent with tip in the bladder. Comment: After approximately 24 hours, the nephroureteral stent could be capped to allow internal drainage. Signed: Dex Romo MD Report Verified Date/Time:07/07/2018 09:19:08 Reading Location: [facility] P048 Angio Body Reading Room Procedure Note Interface, External Ris In - 07/07/2018 9:21 AM CDT FINAL REPORT Procedure: Left percutaneous nephrostomy with placement of internal/external nephroureteral stent, 07/06/2018 HISTORY: Ureteral obstruction with hydronephrosis Anesthesia: 2% lidocaine Sedation: 1 mg Versed, 50 mcg fentanyl, moderate conscious sedation, monitored by the registered nurse. Sedation time: 40 minutes Approach: Left lower pole kidney Modality: Ultrasound and fluoroscopy, fluoroscopy time: Six minutes, total dose: 125 mGy, reference air method TECHNIQUE: After obtaining written informed consent, this procedure was performed using all elements maximal sterile barrier technique without untoward effect. Ultrasound was used to identify left kidney. Hydronephrosis is present. A lower pole calyx was identified and the skin overlying this site was anesthetized. A 21-gauge needle was inserted under real-time ultrasound guidance into the posterior inferior lower pole calyx. A guidewire was advanced centrally with fluoroscopic control. The needle was removed and a sheath was placed into the collecting system. Based steerable catheter and guidewire combination were advanced into the ureter. There was considerable tortuosity of the ureter as well as identification of a complete obstruction at the pelvic brim which did not permit flow of contrast. The obstruction was eventually traversed successfully and a guidewire was placed into the bladder. An 8.5 English internal/external nephroureteral stent was then introduced over the guidewire and placed with its tip in the bladder. The proximal loop was coiled in the renal pelvis and the catheter was left to external drainage overnight. CONCLUSION: Indeterminate distal ureteral obstruction. Successful placement of nephroureteral stent with tip in the bladder. Comment: After approximately 24 hours, the nephroureteral stent could be capped to allow internal drainage. Signed: Dex Romo MD Report Verified Date/Time: 07/07/2018 09:19:08 Reading Location: [facility] B1 P048 Angio Body Reading Room Performing Organization Address City/State/Zipcode Phone Number [facility] * aPTT (07/06/2018 9:06 AM CDT) Only the most recent of 15 results within the time period is included. PTT 37.1 (H) 22.5 - 36.0 seconds [facility] Specimen Blood Performing Organization Address City/State/Zipcode Phone Number [facility] [address] [place] [address] MEDICAL CENTER * Tissue Exam (07/05/2018 8:30 PM CDT) Only the most recent of 2 results within the time period is included. Case Report Surgical Pathology [facility] Report [facility] Case: [id number] Authorizing Provider:Denis Vanegas MDCollected: 07/05/20182029 Ordering Location: [facility] PERIOPERATIVE Received: 07/06/2018 0815 SERVICES Pathologist: Katerina Doran MD Specimen:Soft Tissue, Other, ENDOMETRIAL CURETTINGS DIAGNOSIS ENDOMETRIUM, CURETTAGE: [facility] - PREDOMINANTLY BLOOD [facility] AND MINUTE FRAGMENTS OF SMOOTH MUSCLE Signing Pathologist Direct Phone Line: [phone] COMMENT Sections show scant fragments [facility] of tissue that is positive for [facility] desmin and SMA and negative for keratin AE1/AE3, consistent with smooth muscle. Mitotic activity is low (1 per 10 HPF), with proliferative index (Ki67) of 5-10%. Due to paucity of diagnostic material, no definitive diagnosis is possible. No endometrial tissue is present for evaluation. Procurement of additional tissue is recommended. CPT Code(s) 92053, 80906, 20697 x3 [facility] CLINICAL HISTORY Left ureteral obstruction [facility] SPECIMEN SOURCE Endometrial curettings [facility] GROSS DESCRIPTION A. Received in formalin [facility] labeled "soft tissue" is a 2.4 [facility] x 1.6 x 0.2 cm aggregate of red-brown rubbery soft tissue and blood clot. The specimen is filtered and submitted in toto in cassette A1. FS/ew MICROSCOPIC DESCRIPTION Performed. [facility] SPECIAL STUDIES The interpretation of this [facility] case included the use of [facility] immunohistochemistry or special stains. Immunohistochemistry technical testing was performed at [facility], Pathology Laboratory where it was developed and its performance characteristics were determined. It has not been cleared or approved by the U.S. Food and Drug Administration. The FDA has determined that such clearance or approval is not necessary. The test is used for clinical purposes. It should not be regarded as investigational or for research. This laboratory is certified under the Clinical Laboratory Improvement Amendments of 1988 (CLIA-88) as qualified to perform high complexity clinical laboratory testing. Specimen Tissue Performing Organization Address City/State/Zipcode Phone Number [facility] [address] [place] [address] [facility] * AL landfill grader in or 30 minute increments (07/05/2018 7:44 PM CDT) Specimen Narrative Performed At FINAL REPORT [facility] Operative radiographs, 07/05/2018 70 fluoroscopic images of the abdomen are submitted. Initial image is annotated with fluoroscopy time of 2.3 minutes. Initial images disclose cannulation of the left ureter and injection of contrast. There is focal narrowing of the ureter at the pelvic inlet with mild proximal dilatation of the ureter. There is opacification of only one slightly dilated calyx within the kidney. The remaining calyces are not opacified. A guidewire was advanced partially up the ureter. No stent was left in place.. Signed: Dex Romo MD Report Verified Date/Time:07/05/2018 22:52:04 Reading Location: [facility] Consult Reading Room Procedure Note Interface, External Ris In - 07/05/2018 10:54 PM CDT FINAL REPORT Operative radiographs, 07/05/2018 70 fluoroscopic images of the abdomen are submitted. Initial image is annotated with fluoroscopy time of 2.3 minutes. Initial images disclose cannulation of the left ureter and injection of contrast. There is focal narrowing of the ureter at the pelvic inlet with mild proximal dilatation of the ureter. There is opacification of only one slightly dilated calyx within the kidney. The remaining calyces are not opacified. A guidewire was advanced partially up the ureter. No stent was left in place.. Signed: Dex Romo MD Report Verified Date/Time: 07/05/2018 22:52:04 Reading Location: [address] Consult Reading Room Performing Organization Address City/State/Zipcode Phone Number [facility] * Occult blood, stool (07/05/2018 4:57 AM CDT) Occult blood Negative Negative [facility] Specimen Stool Performing Organization Address City/State/Zipcode Phone Number [place] [phone] [facility]ICAL [facility]ENTER * US Endovaginal (07/04/2018 1:15 PM CDT) Specimen Narrative Performed At FINAL REPORT [facility] Ultrasound of the pelvis: Clinical diagnosis: Uterine mass compressing ureters Comparison: No comparison Technique: Multiple transaxial and longitudinal images were obtained through the pelvis.Five and 10 MHz transducer(s) was(were) utilized transabdominally and endovaginally.Color Doppler and spectral waveform analysis images were submitted to evaluate for blood flow. . 71 images were submitted for interpretation. Report: Uterus: The uterus measures 7.5 x 6.1 x 5.8 cm. Two calcifications are visualized within the uterus presumed to be calcified fibroids measuring 1.9 x 1.8 x 1.7 cm and 1.3 x 1.3 x 1.6 cm. Additionally a mass is visualized measuring 5.3 x 4.7 x 5.2 cm. Mass effect is visualized against the endometrium. Given the patient's age fibroid is considered less likely. The endometrial stripe is not adequately seen. Minimal fluid is visualized within the endometrium. Correlation is needed if the patient has had recent instrumentation. Right Ovary: The right ovary was not visualized. Left Ovary: The left ovary was not visualized. 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 A 5.3 cm lesion is visualized with distortion of the endometrium. The endometrium also demonstrates fluid. Given these findings in a postmenopausal female a neoplastic process is suspected. Signed: Shira Rubin MD Report Verified Date/Time:07/04/2018 15:27:37 Reading Location: [facility] B1 [id number] Ultrasound Reading Room Procedure Note Interface, External Ris In - 07/04/2018 3:29 PM CDT FINAL REPORT Ultrasound of the pelvis: Clinical diagnosis: Uterine mass compressing ureters Comparison: No comparison Technique: Multiple transaxial and longitudinal images were obtained through the pelvis. Five and 10 MHz transducer(s) was(were) utilized transabdominally and endovaginally. Color Doppler and spectral waveform analysis images were submitted to evaluate for blood flow. . 71 images were submitted for interpretation. Report: Uterus: The uterus measures 7.5 x 6.1 x 5.8 cm. Two calcifications are visualized within the uterus presumed to be calcified fibroids measuring 1.9 x 1.8 x 1.7 cm and 1.3 x 1.3 x 1.6 cm. Additionally a mass is visualized measuring 5.3 x 4.7 x 5.2 cm. Mass effect is visualized against the endometrium. Given the patient's age fibroid is considered less likely. The endometrial stripe is not adequately seen. Minimal fluid is visualized within the endometrium. Correlation is needed if the patient has had recent instrumentation. Right Ovary: The right ovary was not visualized. Left Ovary: The left ovary was not visualized. 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 A 5.3 cm lesion is visualized with distortion of the endometrium. The endometrium also demonstrates fluid. Given these findings in a postmenopausal female a neoplastic process is suspected. Signed: Shira Rubin MD Report Verified Date/Time: 07/04/2018 15:27:37 Reading Location: [facility] P006J Ultrasound Reading Room Performing Organization Address City/State/Zipcode Phone Number [facility] * MR abdomen without IV contrast (07/02/2018 6:27 PM CDT) Specimen Narrative Performed At FINAL REPORT [facility] MR of the Abdomen and pelvis dated 07/03/2018 Comment: Multiplanar T1 and T2-weighted images of the abdomen and pelvis were obtained. No intravenous contrast is seen. A small hiatal hernia is present. Liver and spleen are normal in size. Several subcentimeter cysts are seen in the liver. Liver is suboptimally evaluated secondary to lack of intravenous contrast. Gallbladder is not visualized. No biliary dilatation is seen. Pancreas and adrenals are unremarkable. Both kidneys are normal in size. There is moderate left hydronephrosis and hydroureter. A 1.5 x 1.6 cm cyst is seen in the upper pole right kidney. Uterus is prominent. A heterogeneous mass is seen in the body of the uterus measuring 4.6 x 4.8 cm. A 4.6 x 3.8 cm mass is seen in the left adnexa with obstruction of the distal left ureter. The right ovary is not visualized. The small and large bowel are prominent. Appendix is not visualized. IMPRESSION: 1. Limited examination secondary to lack of intravenous contrast. 2. Left hydronephrosis and hydroureter secondary to left adnexal mass. 3. Suboptimal evaluation of the uterus. 3. Liver and right renal cysts. Signed: Oleksandr Dye MD Report Verified Date/Time:07/03/2018 16:13:37 Reading Location: [address] Body Reading Room Procedure Note Interface, External Ris In - 07/03/2018 4:15 PM CDT FINAL REPORT MR of the Abdomen and pelvis dated 07/03/2018 Comment: Multiplanar T1 and T2-weighted images of the abdomen and pelvis were obtained. No intravenous contrast is seen. A small hiatal hernia is present. Liver and spleen are normal in size. Several subcentimeter cysts are seen in the liver. Liver is suboptimally evaluated secondary to lack of intravenous contrast. Gallbladder is not visualized. No biliary dilatation is seen. Pancreas and adrenals are unremarkable. Both kidneys are normal in size. There is moderate left hydronephrosis and hydroureter. A 1.5 x 1.6 cm cyst is seen in the upper pole right kidney. Uterus is prominent. A heterogeneous mass is seen in the body of the uterus measuring 4.6 x 4.8 cm. A 4.6 x 3.8 cm mass is seen in the left adnexa with obstruction of the distal left ureter. The right ovary is not visualized. The small and large bowel are prominent. Appendix is not visualized. IMPRESSION: 1. Limited examination secondary to lack of intravenous contrast. 2. Left hydronephrosis and hydroureter secondary to left adnexal mass. 3. Suboptimal evaluation of the uterus. 3. Liver and right renal cysts. Signed: Oleksandr Dye MD Report Verified Date/Time: 07/03/2018 16:13:37 Reading Location: [facility] B1 C013Y CT Body Reading Room Performing Organization Address City/State/Zipcode Phone Number [facility] * MR pelvis without IV contrast (07/02/2018 6:27 PM CDT) Specimen Narrative Performed At FINAL REPORT [facility] MRI of the abdomen without contrast, MRI of the pelvis without contrast. Clinical History: Adnexal mass, complex or solid Technique: Multiplanar and multisequence MR images of the abdomen are obtained before and after intravenous contrast administration. Multiplanar and multisequence MR images of the pelvis are obtained before and after intravenous contrast administration. Contrast is administered to evaluate for neoplasm. Comparison: No priors Discussion: Abdomen: Liver is not cirrhotic in morphology. There are a few tiny T2 bright foci within the liver, which may represent cysts or biliary hamartomas. Gallbladder has been removed. The extra hepatic bile duct is prominent, and measures up to 1 cm in diameter Spleen is unremarkable. There is borderline prominence of the pancreatic duct in the head region, no peripancreatic fluid. There is severe left-sided hydronephrosis and hydroureter. In the interpolar right kidney, a 1.7 cm fluid signal structure is most likely a cyst. There is dilation of small bowel, which is fluid-filled, ileus versus small bowel obstruction. Note is made of colonic diverticulosis. No adenopathy. No ascites. Osseous structures demonstrate scoliosis and degenerative changes. No suspicious bony lesion. Pelvis: Centered in the expected location of the uterus, there is a T1 and T2 hypointense mass that measures approximately 5.5 x 5.6 x 7.9 cm, demonstrating diffusion restriction, highly suspicious for malignancy. Lobulated mass extending toward the left pelvic sidewall may reflect the right extension of the tumor, versus regional charles metastasis, causing obstruction of the left ureter. It is unclear whether there is tumoral involvement of the sigmoid colon. On the right, a 1.2 cm soft tissue nodule immediately adjacent to a loop of small bowel is suspicious for metastatic deposit as well. Bladder is unremarkable. Pelvic bony structures demonstrate degenerative changes, but no suspicious lesion is identified. Impression: Pelvic mass as described, centered in the expected location of the uterus, suspicious for uterine neoplasm, ovarian origin neoplasm is also possible, but less likely given the central location of the mass. 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 It is unclear whether there is tumoral involvement of the sigmoid colon. Severe left hydronephrosis. Small bowel distention, which may reflect obstruction or ileus. Tiny cysts or biliary hamartomas in liver. Status post cholecystectomy. No specific prominence of the extrahepatic bile duct. Signed: Livier Lamb MD Report Verified Date/Time:07/03/2018 10:45:35 Reading Location: [facility] [id number] Ortho Consult Reading Room Procedure Note Interface, External Ris In - 07/03/2018 10:47 AM CDT FINAL REPORT MRI of the abdomen without contrast, MRI of the pelvis without contrast. Clinical History: Adnexal mass, complex or solid Technique: Multiplanar and multisequence MR images of the abdomen are obtained before and after intravenous contrast administration. Multiplanar and multisequence MR images of the pelvis are obtained before and after intravenous contrast administration. Contrast is administered to evaluate for neoplasm. Comparison: No priors Discussion: Abdomen: Liver is not cirrhotic in morphology. There are a few tiny T2 bright foci within the liver, which may represent cysts or biliary hamartomas. Gallbladder has been removed. The extra hepatic bile duct is prominent, and measures up to 1 cm in diameter Spleen is unremarkable. There is borderline prominence of the pancreatic duct in the head region, no peripancreatic fluid. There is severe left-sided hydronephrosis and hydroureter. In the interpolar right kidney, a 1.7 cm fluid signal structure is most likely a cyst. There is dilation of small bowel, which is fluid-filled, ileus versus small bowel obstruction. Note is made of colonic diverticulosis. No adenopathy. No ascites. Osseous structures demonstrate scoliosis and degenerative changes. No suspicious bony lesion. Pelvis: Centered in the expected location of the uterus, there is a T1 and T2 hypointense mass that measures approximately 5.5 x 5.6 x 7.9 cm, demonstrating diffusion restriction, highly suspicious for malignancy. Lobulated mass extending toward the left pelvic sidewall may reflect the right extension of the tumor, versus regional charles metastasis, causing obstruction of the left ureter. It is unclear whether there is tumoral involvement of the sigmoid colon. On the right, a 1.2 cm soft tissue nodule immediately adjacent to a loop of small bowel is suspicious for metastatic deposit as well. Bladder is unremarkable. Pelvic bony structures demonstrate degenerative changes, but no suspicious lesion is identified. Impression: Pelvic mass as described, centered in the expected location of the uterus, suspicious for uterine neoplasm, ovarian origin neoplasm is also possible, but less likely given the central location of the mass. 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 It is unclear whether there is tumoral involvement of the sigmoid colon. Severe left hydronephrosis. Small bowel distention, which may reflect obstruction or ileus. Tiny cysts or biliary hamartomas in liver. Status post cholecystectomy. No specific prominence of the extrahepatic bile duct. Signed: Livier Lamb MD Report Verified Date/Time: 07/03/2018 10:45:35 Reading Location: [address] Ortho Consult Reading Room Performing Organization Address City/State/Zipcode Phone Number [facility] * B-type Natriuretic Factor (BNP) (07/02/2018 4:16 AM CDT) BNP 527 (H) 0 - 100 pg/mL [facility] Specimen Blood Performing Organization Address City/[facility]/Zipcode Phone Number [address] [address] [facility] * ECG 12 lead (06/30/2018 12:35 PM CDT) Specimen Narrative Performed At Ventricular Rate 94 BPM GE MUSE Atrial Rate 326 BPM QRS Duration 82 ms Q-T Interval 362 ms QTC Calculation(Bazett) 452 ms R Poth 1 degrees T Poth 16 degrees Atrial fibrillation Nonspecific T wave abnormality Abnormal ECG No previous ECGs available Confirmed by MD KAPOOR JORGE ([id number]) on 06/30/2018 2:22:40 PM Procedure Note Interface, External Ris In - 06/30/2018 2:22 PM CDT Ventricular Rate 94 BPM Atrial Rate 326 BPM QRS Duration 82 ms Q-T Interval 362 ms QTC Calculation(Bazett) 452 ms R Poth 1 degrees T Poth 16 degrees Atrial fibrillation Nonspecific T wave abnormality Abnormal ECG No previous ECGs available Confirmed by MD KAPOOR JORGE ([id number]) on 06/30/2018 2:22:40 PM Performing Organization Address City/State/Zipcode Phone Number GE MUSE after 08/14/2017 Insurance Payer Benefit Subscriber ID Type Phone Address Plan / Group [employer] xxxxxxxxxxx MEDICARE ADV Advance Directives For more information, please contact: [facility] [address] [place] [address] Date Inactivated Comments Code Status Date Activated 07/27/2018 6:49 PM Full Code 07/24/2018 8:52 AM This code status was determined by: Patient 07/12/2018 2:33 PM Full Code 06/30/2018 11:29 AM This code status was determined by: Patient 06/28/2018 2:34 PM Full Code 06/28/2018 7:49 AM This code status was determined by: Patient 12/26/2013 2:31 PM Full Code 12/26/2013 7:34 AM This code status was determined by: Patient
--- OUTSIDE RECORDS SUMMARY | 2018-08-15 10:18 | XMS REPORT ---
Author Author [facility] Address Unknown Phone Unavailable Care Team Providers Care Nurse Gynecology Name Role Phone Franca HASSAN Unavailable Unavailable JOANNE SEGAL Unavailable Unavailable Carla CERVANTES Unavailable Unavailable NOAH JO Unavailable Unavailable Problems This patient has no known problems. Allergies, Adverse Reactions, Alerts This patient has no known allergies or adverse reactions. Medications This patient has no known medications. Results Test Description Test Time Test Comments Text Results Atomic Results Result Comments BASIC METABOLIC PANEL 2018-07-27 14:00:00 SODIUM (BEAKER) (test smsa=608) 142 meq/L 136-145 POTASSIUM (BEAKER) (test aoos=449) 3.6 meq/L 3.5-5.1 CHLORIDE (BEAKER) (test gsmn=047) 109 meq/L 98-107 CO2 (BEAKER) (test bpzw=566) 25 meq/L 22-29 BLOOD UREA NITROGEN (BEAKER) (test ojvv=877) 28 mg/dL 7-21 CREATININE (BEAKER) (test nmnc=031) 1.34 mg/dL 0.57-1.25 GLUCOSE RANDOM (BEAKER) (test wowi=465) 126 mg/dL 70-105 CALCIUM (BEAKER) (test pgym=960) 9.0 mg/dL 8.4-10.2 EGFR (BEAKER) (test vgkf=3136) 46 mL/min/1.73 sq m ESTIMATED GFR IS NOT ACCURATE CREATININE CLEARANCE IN PREDICTING GLOMERULAR FILTRATION RATE. ESTIMATED GFR IS NOT APPLICABLE FOR DIALYSIS PATIENTS. BASIC METABOLIC [id number] 05:55:00* Test Item Value Reference Range Comments SODIUM (BEAKER) (test ycga=179) 142 meq/L 136-145 POTASSIUM (BEAKER) (test cbtu=192) 3.7 meq/L 3.5-5.1 CHLORIDE (BEAKER) (test dnxq=459) 109 meq/L 98-107 CO2 (BEAKER) (test xfdd=289) 23 meq/L 22-29 BLOOD UREA NITROGEN (BEAKER) (test qfdy=149) 29 mg/dL 7-21 CREATININE (BEAKER) (test berw=235) 1.51 mg/dL 0.57-1.25 GLUCOSE RANDOM (BEAKER) (test cvsg=454) 102 mg/dL 70-105 CALCIUM (BEAKER) (test lnuz=649) 9.1 mg/dL 8.4-10.2 EGFR (BEAKER) (test yokv=3418) 40 mL/min/1.73 sq m ESTIMATED GFR IS NOT ACCURATE CREATININE CLEARANCE IN PREDICTING GLOMERULAR FILTRATION RATE. ESTIMATED GFR IS NOT APPLICABLE FOR DIALYSIS PATIENTS. PROTHROMBIN TIME/[id number] 05:45:00* Test Item Value Reference Range Comments PROTIME (BEAKER) (test fgws=295) 24.2 seconds 11.7-14.7 INR (BEAKER) (test acud=199) 2.3 <=5.9 RECOMMENDED COUMADIN/WARFARIN INR THERAPY RANGESSTANDARD DOSE: 2.0 - 3.0 Inclu mainor: PROPHYLAXIS for venous thrombosis, systemic embolization; TREATMENT for reilly ous thrombosis and/or pulmonary embolus.HIGH RISK: Target INR is 2.5-3.5 for pat ients with mechanical heart valves.While on warfarin.CBC W/PLT COUNT & AUTO [id number] 05:40:00* Test Item Value Reference Range Comments WHITE BLOOD CELL COUNT (BEAKER) (test piwc=227) 8.8 K/ L 3.5-10.5 RED BLOOD CELL COUNT (BEAKER) (test jzqn=418) 3.54 M/ L 3.93-5.22 HEMOGLOBIN (BEAKER) (test zqqv=807) 10.2 GM/DL 11.2-15.7 HEMATOCRIT (BEAKER) (test vrbn=929) 32.8 % 34.1-44.9 MEAN CORPUSCULAR VOLUME (BEAKER) (test mkaz=832) 92.7 fL 79.4-94.8 MEAN CORPUSCULAR HEMOGLOBIN (BEAKER) (test kbtb=096) 28.8 pg 25.6-32.2 MEAN CORPUSCULAR HEMOGLOBIN CONC (BEAKER) (test rxio=774) 31.1 GM/DL 32.2-35.5 RED CELL DISTRIBUTION WIDTH (BEAKER) (test vbhc=870) 15.0 % 11.7-14.4 PLATELET COUNT (BEAKER) (test tavk=888) 327 K/CU MM 150-450 MEAN PLATELET VOLUME (BEAKER) (test natl=349) 10.8 fL 9.4-12.3 NUCLEATED RED BLOOD CELLS (BEAKER) (test avci=658) 0 /100 WBC 0-0 NEUTROPHILS RELATIVE PERCENT (BEAKER) (test corn=952) 49 % LYMPHOCYTES RELATIVE PERCENT (BEAKER) (test qent=635) 32 % MONOCYTES RELATIVE PERCENT (BEAKER) (test wfzl=256) 10 % EOSINOPHILS RELATIVE PERCENT (BEAKER) (test wjel=446) 8 % BASOPHILS RELATIVE PERCENT (BEAKER) (test myul=311) 1 % NEUTROPHILS ABSOLUTE COUNT (BEAKER) (test aefp=978) 4.34 K/ L 1.56-6.13 LYMPHOCYTES ABSOLUTE COUNT (BEAKER) (test qyhu=139) 2.83 K/ L 1.18-3.74 MONOCYTES ABSOLUTE COUNT (BEAKER) (test dfwb=523) 0.84 K/ L 0.24-0.36 EOSINOPHILS ABSOLUTE COUNT (BEAKER) (test zfrg=132) 0.67 K/ L 0.04-0.36 BASOPHILS ABSOLUTE COUNT (BEAKER) (test kddd=083) 0.06 K/ L 0.01-0.08 IMMATURE GRANULOCYTES-RELATIVE PERCENT (BEAKER) (test pwps=1005) 1 % 0-1 PROTHROMBIN TIME/[id number] 07:31:00* Test Item Value Reference Range Comments PROTIME (BEAKER) (test pwhj=787) 22.0 seconds 11.7-14.7 INR (BEAKER) (test vxkx=330) 2.0 <=5.9 RECOMMENDED COUMADIN/WARFARIN INR THERAPY RANGESSTANDARD DOSE: 2.0 - 3.0 Inclu mainor: PROPHYLAXIS for venous thrombosis, systemic embolization; TREATMENT for reilly ous thrombosis and/or pulmonary embolus.HIGH RISK: Target INR is 2.5-3.5 for pat ients with mechanical heart valves.While on warfarin.[id number] 07:28:00* Test Item Value Reference Range Comments MAGNESIUM (BEAKER) (test zkny=851) 1.8 mg/dL 1.6-2.6 BASIC METABOLIC [id number] 07:28:00* Test Item Value Reference Range Comments SODIUM (BEAKER) (test dfnw=704) 142 meq/L 136-145 POTASSIUM (BEAKER) (test uoxp=321) 3.9 meq/L 3.5-5.1 CHLORIDE (BEAKER) (test gisy=106) 107 meq/L 98-107 CO2 (BEAKER) (test iivb=300) 24 meq/L 22-29 BLOOD UREA NITROGEN (BEAKER) (test yfsk=205) 20 mg/dL 7-21 CREATININE (BEAKER) (test oxxt=335) 1.28 mg/dL 0.57-1.25 GLUCOSE RANDOM (BEAKER) (test jftm=731) 75 mg/dL 70-105 CALCIUM (BEAKER) (test otrz=214) 9.5 mg/dL 8.4-10.2 EGFR (BEAKER) (test vegh=7717) 49 mL/min/1.73 sq m ESTIMATED GFR IS NOT ACCURATE CREATININE CLEARANCE IN PREDICTING GLOMERULAR FILTRATION RATE. ESTIMATED GFR IS NOT APPLICABLE FOR DIALYSIS PATIENTS. BASIC METABOLIC [id number] 05:43:00* Test Item Value Reference Range Comments SODIUM (BEAKER) (test ymxq=234) 141 meq/L 136-145 POTASSIUM (BEAKER) (test wsti=172) 3.6 meq/L 3.5-5.1 CHLORIDE (BEAKER) (test axor=602) 106 meq/L 98-107 CO2 (BEAKER) (test wvwy=760) 25 meq/L 22-29 BLOOD UREA NITROGEN (BEAKER) (test lrsp=700) 17 mg/dL 7-21 CREATININE (BEAKER) (test zxit=472) 1.00 mg/dL 0.57-1.25 GLUCOSE RANDOM (BEAKER) (test ushn=671) 78 mg/dL 70-105 CALCIUM (BEAKER) (test iirq=704) 9.2 mg/dL 8.4-10.2 EGFR (BEAKER) (test mfyo=2974) 64 mL/min/1.73 sq m ESTIMATED GFR IS NOT ACCURATE CREATININE CLEARANCE IN PREDICTING GLOMERULAR FILTRATION RATE. ESTIMATED GFR IS NOT APPLICABLE FOR DIALYSIS PATIENTS. PROTHROMBIN TIME/[id number] 05:18:00* Test Item Value Reference Range Comments PROTIME (BEAKER) (test lmoy=029) 22.8 seconds 11.7-14.7 INR (BEAKER) (test wlig=925) 2.1 <=5.9 RECOMMENDED COUMADIN/WARFARIN INR THERAPY RANGESSTANDARD DOSE: 2.0 - 3.0 Inclu mainor: PROPHYLAXIS for venous thrombosis, systemic embolization; TREATMENT for reilly ous thrombosis and/or pulmonary embolus.HIGH RISK: Target INR is 2.5-3.5 for pat ients with mechanical heart valves.CBC W/PLT COUNT & AUTO [id number] 04:58:00* Test Item Value Reference Range Comments WHITE BLOOD CELL COUNT (BEAKER) (test bacb=849) 8.8 K/ L 3.5-10.5 RED BLOOD CELL COUNT (BEAKER) (test ngek=321) 3.54 M/ L 3.93-5.22 HEMOGLOBIN (BEAKER) (test yhir=313) 10.0 GM/DL 11.2-15.7 HEMATOCRIT (BEAKER) (test lyqv=056) 32.5 % 34.1-44.9 MEAN CORPUSCULAR VOLUME (BEAKER) (test ybev=282) 91.8 fL 79.4-94.8 MEAN CORPUSCULAR HEMOGLOBIN (BEAKER) (test txtb=748) 28.2 pg 25.6-32.2 MEAN CORPUSCULAR HEMOGLOBIN CONC (BEAKER) (test mail=315) 30.8 GM/DL 32.2-35.5 RED CELL DISTRIBUTION WIDTH (BEAKER) (test djcv=163) 14.9 % 11.7-14.4 PLATELET COUNT (BEAKER) (test plyt=836) 383 K/CU MM 150-450 MEAN PLATELET VOLUME (BEAKER) (test meuu=726) 11.1 fL 9.4-12.3 NUCLEATED RED BLOOD CELLS (BEAKER) (test xbul=150) 0 /100 WBC 0-0 NEUTROPHILS RELATIVE PERCENT (BEAKER) (test glcx=309) 57 % LYMPHOCYTES RELATIVE PERCENT (BEAKER) (test jwlu=169) 28 % MONOCYTES RELATIVE PERCENT (BEAKER) (test yntl=386) 10 % EOSINOPHILS RELATIVE PERCENT (BEAKER) (test tpcy=396) 4 % BASOPHILS RELATIVE PERCENT (BEAKER) (test srsx=918) 1 % NEUTROPHILS ABSOLUTE COUNT (BEAKER) (test rjtj=525) 4.95 K/ L 1.56-6.13 LYMPHOCYTES ABSOLUTE COUNT (BEAKER) (test knuo=160) 2.45 K/ L 1.18-3.74 MONOCYTES ABSOLUTE COUNT (BEAKER) (test skqu=117) 0.87 K/ L 0.24-0.36 EOSINOPHILS ABSOLUTE COUNT (BEAKER) (test dalg=207) 0.37 K/ L 0.04-0.36 BASOPHILS ABSOLUTE COUNT (BEAKER) (test pxqv=749) 0.09 K/ L 0.01-0.08 IMMATURE GRANULOCYTES-RELATIVE PERCENT (BEAKER) (test jvpf=8992) 0 % 0-1 [id number] 16:25:00* Test Item Value Reference Range Comments MAGNESIUM (BEAKER) (test fqux=713) 1.7 mg/dL 1.6-2.6 Specimen slightly hemolyzed [id number] 16:25:00* Test Item Value Reference Range Comments PHOSPHORUS (BEAKER) (test osbn=887) 3.3 mg/dL 2.3-4.7 Specimen slightly hemolyzed PROTHROMBIN TIME/[id number] 09:00:00* Test Item Value Reference Range Comments PROTIME (BEAKER) (test iggu=977) 27.5 seconds 11.7-14.7 INR (BEAKER) (test lybj=354) 2.7 <=5.9 RECOMMENDED COUMADIN/WARFARIN INR THERAPY RANGESSTANDARD DOSE: 2.0 - 3.0 Inclu mainor: PROPHYLAXIS for venous thrombosis, systemic embolization; TREATMENT for reilly ous thrombosis and/or pulmonary embolus.HIGH RISK: Target INR is 2.5-3.5 for pat ients with mechanical heart valves.PT/[id number] 09:00:00* Test Item Value Reference Range Comments PROTIME (BEAKER) (test srkp=922) 27.5 seconds 11.7-14.7 INR (BEAKER) (test tyci=739) 2.7 <=5.9 PARTIAL THROMBOPLASTIN TIME (BEAKER) (test ifou=910) 42.7 seconds 22.5-36.0 RECOMMENDED COUMADIN/WARFARIN INR THERAPY RANGESSTANDARD DOSE: 2.0 - 3.0 Inclu mainor: PROPHYLAXIS for venous thrombosis, systemic embolization; TREATMENT for reilly ous thrombosis and/or pulmonary embolus.HIGH RISK: Target INR is 2.5-3.5 for pat ients with mechanical heart valves.[id number] 03:51:00* Test Item Value Reference Range Comments LIPASE (BEAKER) (test dvhy=734) 14 U/L 8-78 ALT (SGPT)2018-07-24 03:51:00* Test Item Value Reference Range Comments ALT (SGPT) (BEAKER) (test xmle=957) 10 U/L 6-55 AST (SGOT)2018-07-24 03:51:00* Test Item Value Reference Range Comments AST (SGOT) (BEAKER) (test lifl=174) 18 U/L 5-34 BASIC METABOLIC [id number] 03:51:00* Test Item Value Reference Range Comments SODIUM (BEAKER) (test byty=341) 143 meq/L 136-145 POTASSIUM (BEAKER) (test kvvo=537) 3.8 meq/L 3.5-5.1 CHLORIDE (BEAKER) (test fwnd=902) 107 meq/L 98-107 CO2 (BEAKER) (test bvnk=679) 24 meq/L 22-29 BLOOD UREA NITROGEN (BEAKER) (test zbyi=306) 23 mg/dL 7-21 CREATININE (BEAKER) (test uffu=121) 1.22 mg/dL 0.57-1.25 GLUCOSE RANDOM (BEAKER) (test ylcz=211) 104 mg/dL 70-105 CALCIUM (BEAKER) (test zuvu=677) 9.6 mg/dL 8.4-10.2 EGFR (BEAKER) (test bwrc=9604) 51 mL/min/1.73 sq m ESTIMATED GFR IS NOT ACCURATE CREATININE CLEARANCE IN PREDICTING GLOMERULAR FILTRATION RATE. ESTIMATED GFR IS NOT APPLICABLE FOR DIALYSIS PATIENTS. BILIRUBIN, ADULT [id number] 03:51:00* Test Item Value Reference Range Comments BILIRUBIN TOTAL (BEAKER) (test atwb=790) 0.4 mg/dL 0.2-1.2 CT, [id number] 02:52:00FINAL REPORT EXAMINATION: CT SCAN OF THE ABDOMEN [...] definite evidence of pathologic biliary dilatation. Limited non contrast images of the liver, spleen and adrenal glands are unremarkable. The pa ncreas is atrophic with fatty infiltration. There is a left-sided nephroureteral stent with the proximal pigtail in the renal pelvis and the distal pigtail in t he bladder. There is mild dilatation of the of several isolated left renal calyc es, chronicity and clinical significance indeterminate. Other calyces appear dec ompressed. No significant perinephric edema. The right renal collecting system i s decompressed. The dorsal cortex of the right kidney is associated with a small hypodense nodule with imaging characteristics suggestive of simple cyst. The ab dominal aorta is normal in caliber calcific atherosclerotic changes are noted in volving the aorta, mesenteric, renal, iliac and visualized femoral arteries. Fur ther characterization the vascular structures is limited by the absence of contr ast. 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 More aggressive process cannot be exc luded. No evidence of a discrete adnexal mass. The bladder is decompressed. Post operative changes are noted involving the anterior abdominal wall. Subtle infilt ration along the midline incision may reflect associated postoperative change. I nfection/cellulitis cannot be excluded. No evidence of an associated organized f luid collection/abscess. No definite evidence of an acute osseous abnormality. I MPRESSION: Abnormal bowel gas pattern as detailed above. Small bowel obstructio n should be strongly considered given the transition from dilated to decompresse d loops. However, relatively large volume of fluid is also noted in the right co lonic segments. Therefore an ileus or impending diarrheal illness would also be considerations. Mildly distended fluid filled hiatal hernia with fluid in the up stream esophagus, possible gastroesophageal reflux related to the abnormal bowel gas pattern detailed above. Patient may benefit from placement of decompressive nasogastric tube. Left nephroureteral stent. Mild dilatation of several isolated left renal calyces of uncertain chronicity or significance. Exam limited by ab sence of oral and IV contrast. Please see above for additional details. Results discussed with Dr. Hassan. Signed: Leia Rebolledo MDReport Verified Date/Time: 08/2018 02:52:13 Reading Location: [address] Reading Room Gayle ctronically signed by: LEIA REBOLLEDO M.D. on 07/24/2018 02:52 AM URINALYSIS W/ [id number] 02:32:00* Test Item Value Reference Range Comments COLOR (BEAKER) (test fdgh=108) Light Yellow CLARITY (BEAKER) (test vkzk=292) Clear SPECIFIC GRAVITY UA (BEAKER) (test mfvm=030) 1.011 1.001-1.035 PH UA (BEAKER) (test gous=402) 7.0 5.0-8.0 PROTEIN UA (BEAKER) (test iick=292) Negative Negative GLUCOSE UA (BEAKER) (test prmu=058) Negative Negative KETONES UA (BEAKER) (test qqfh=240) Negative Negative BILIRUBIN UA (BEAKER) (test ydbg=050) Negative Negative BLOOD UA (BEAKER) (test ebju=043) Negative Negative NITRITE UA (BEAKER) (test rlqs=372) Negative Negative LEUKOCYTE ESTERASE UA (BEAKER) (test jsfl=744) Negative Negative UROBILINOGEN UA (BEAKER) (test eylg=058) 0.2 mg/dL 0.2-1.0 RBC UA (BEAKER) (test hbdz=212) < /HPF WBC UA (BEAKER) (test xrtb=221) 3 /HPF SQUAMOUS EPITHELIAL (BEAKER) (test tqcy=876) 1 /HPF SOURCE(BEAKER) (test yeew=2631) Urine, Clean Catch CBC W/PLT COUNT & AUTO [id number] 01:55:00* Test Item Value Reference Range Comments WHITE BLOOD CELL COUNT (BEAKER) (test afiz=635) 8.4 K/ L 3.5-10.5 RED BLOOD CELL COUNT (BEAKER) (test gant=892) 3.66 M/ L 3.93-5.22 HEMOGLOBIN (BEAKER) (test ivmz=468) 10.5 GM/DL 11.2-15.7 HEMATOCRIT (BEAKER) (test nvrc=962) 32.9 % 34.1-44.9 MEAN CORPUSCULAR VOLUME (BEAKER) (test yicn=111) 89.9 fL 79.4-94.8 MEAN CORPUSCULAR HEMOGLOBIN (BEAKER) (test xvmm=786) 28.7 pg 25.6-32.2 MEAN CORPUSCULAR HEMOGLOBIN CONC (BEAKER) (test dajy=851) 31.9 GM/DL 32.2-35.5 RED CELL DISTRIBUTION WIDTH (BEAKER) (test ozmx=395) 14.9 % 11.7-14.4 PLATELET COUNT (BEAKER) (test nxcm=417) 425 K/CU MM 150-450 MEAN PLATELET VOLUME (BEAKER) (test gpbv=562) 10.2 fL 9.4-12.3 NUCLEATED RED BLOOD CELLS (BEAKER) (test xinm=506) 0 /100 WBC 0-0 NEUTROPHILS RELATIVE PERCENT (BEAKER) (test xiwo=610) 50 % LYMPHOCYTES RELATIVE PERCENT (BEAKER) (test atnn=108) 34 % MONOCYTES RELATIVE PERCENT (BEAKER) (test ybht=054) 9 % EOSINOPHILS RELATIVE PERCENT (BEAKER) (test hgsd=517) 5 % BASOPHILS RELATIVE PERCENT (BEAKER) (test rgiu=437) 1 % NEUTROPHILS ABSOLUTE COUNT (BEAKER) (test qmex=902) 4.21 K/ L 1.56-6.13 LYMPHOCYTES ABSOLUTE COUNT (BEAKER) (test jzpg=216) 2.85 K/ L 1.18-3.74 MONOCYTES ABSOLUTE COUNT (BEAKER) (test lzmy=264) 0.74 K/ L 0.24-0.36 EOSINOPHILS ABSOLUTE COUNT (BEAKER) (test sizy=135) 0.45 K/ L 0.04-0.36 BASOPHILS ABSOLUTE COUNT (BEAKER) (test uovd=373) 0.09 K/ L 0.01-0.08 IMMATURE GRANULOCYTES-RELATIVE PERCENT (BEAKER) (test kiqp=9028) 0 % 0-1 TISSUE [id number] 10:40:00Surgical Pathology Report Case: [id number] Authorizing Provider: Oleksandr Jo MD Collected: 06/28/2018 0903 Ordering Location: [facility] Received: 06/28/2018 1154 SERVICES Pathologist: Katerina Doran MD Specimen: Umbilicus, periumbilicus mass, short stitch superior, long stitch left SKIN AND SOFT TISSUE, PERIUMBILICUS, EXCISION: - SMOOTH MUSCLE NEOPLASM WITH WORRISOME FEATURES (See Comment) Signing Pathologist Direct Phone Line: [phone] signed by Katerina Doran MD on 07/17/2018 at 10:40 AMThe smooth muscle tumor shows infiltrative borders, moderate cytologic atypia, mitosis of up to 8 per 10 high power pa. There is no tumor necrosis or vascular invasion noted. While the criteria fall short of a diagnosis of leiomyosarcoma, given the presence of a possible uterine neoplasm, it cannot entirely be ruled out. 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 The tumor is positive for ER, IN, focal nuclear WT-1, suggesting Mullerian origin. The tumor is positive for SMA and desmin, negative for S100, ckit, DOG- 1, p16, CD10 and BCL2. 31946 x 637919 x [phone] x 10 Abdominal wall mass Josseline umbilicus massThe specimen is received in a formalin-filled container labeled wi th the patient's information and labeled "periumbilicus mass" and consists of 48 gm of fibrofatty mass measuring 6 x 4.5 x 3 cm with brown skin measuring 3.5 x 1.5 cm. The deep surface has blue-purple and glistening tissue showing a palpabl e mass. There are two black sutures designating short superior and long lateral. Ink code: Superior-blue, inferior-red, lateral-green, medial-oral and deep-black .The specimen is serially sectioned from medial to lateral. The specimen's cut s urface is 95% replaced by a arauz-pink, lobulated, whorled mass. The mass grossly appears to involve all surrounding margins. [employer] sections of the mass and margins are submitted as follows: A1, lateral margin; A2, superior margin; A 3, deep margin; A4, inferior margin; A5, anterior margin; A6, medial margin; A7, A8, central sections of mass. CG/ewSections show fascicles of oval to spindle c ells having plump eosinophilic cytoplasms with vacuoles. [place] nucleoli are frequ ently seen. Scattered inflammatory cells including plasma cells are seen. Immuno histochemical stains for desmin and smooth muscle actin are positive in tumor ce lls, supporting the final diagnosis. S100, CD117, and DOG1 are negative in tumor cells per se.The interpretation of this case included the use of immunohistoche javon or special stains. Immunohistochemistry technical testing was performed a [facility], Pathology Laboratory where it was developed and its performance characteristics were determined. It has not been cleared or approved by the U.S. Food and Drug Administration. The FDA has determined that [facility] clearance or approval is not necessary. The test is used for clinical purpos es. It should not be regarded as investigational or for research. This laborator y is certified under the Clinical Laboratory Improvement Amendments of 1988 (CLI A-88) as qualified to perform high complexity clinical laboratory testing. OSMOLALITY, [id number] 11:06:00* Test Item Value Reference Range Comments OSMOLALITY, SERUM (BEAKER) (test qmjk=545) 297 mOsm/kg 275-295 OSMOLALITY, [id number] 11:05:00* Test Item Value Reference Range Comments OSMOLALITY URINE (BEAKER) (test cymh=895) 372 mOsm/kg 40-1,400 TISSUE [id number] 10:38:00Surgical Pathology Report Case: [id number] Authorizing Provider: Denis Vanegas MD Collected: 07/05/2018 2030 Ordering Location: [facility] Received: 07/06/2018 0815 SERVICES Pathologist: Katerina Doran MD Specimen: Soft Tissue, Other, ENDOMETRIAL CURETTINGS ENDOMETRIUM, CURETTAGE: - PREDOMINANTLY BLOOD AND MINUTE FRAGMENTS OF SMOOTH MUSCLE Signing Pathologist Direct Phone Line: [phone] signed by Katerina Doran MD on 07/12/2018 at 10:38 AMSections show scant fragments of tissue that is positive for desmin and SMA and negative for keratin AE1/AE3, consistent with smooth muscle. Mitotic activity is low (1 per 10 HPF), with proliferative index (Ki67) of 5-10%. Due to paucity of diagnostic material, no definitive diagnosis is possible. No endometrial tissue is present for evaluation. Procurement of additional tissue is recommended. 80372, 68862, 01601 x3Left ureteral obstruction Endometrial curettings A. Received in formalin labeled "soft tissue" is a 2.4 x 1.6 x 0.2 cm aggregate of red-brown rubbery soft tissue and blood clot. The specimen is filtered and submitted in toto in cassette A1. FS/ewPerformed.The interpretation of this case included the use of immunohistochemistry or special stains. Immunohistochemistry technical testing was performed at [facility], Pathology Laboratory where it was developed and [...] qualified to perform high complexity clinical laboratory testing.BASIC METABOLIC [id number] 05:29:00* Test Item Value Reference Range Comments SODIUM (BEAKER) (test wamz=201) 141 meq/L 136-145 POTASSIUM (BEAKER) (test mzse=170) 4.0 meq/L 3.5-5.1 CHLORIDE (BEAKER) (test dgly=543) 107 meq/L 98-107 CO2 (BEAKER) (test ujhr=793) 25 meq/L 22-29 BLOOD UREA NITROGEN (BEAKER) (test afqi=786) 37 mg/dL 7-21 CREATININE (BEAKER) (test amhw=158) 1.51 mg/dL 0.57-1.25 GLUCOSE RANDOM (BEAKER) (test kgjz=953) 103 mg/dL 70-105 CALCIUM (BEAKER) (test voxo=573) 9.1 mg/dL 8.4-10.2 EGFR (BEAKER) (test oogp=3522) 40 mL/min/1.73 sq m ESTIMATED GFR IS NOT ACCURATE CREATININE CLEARANCE IN PREDICTING GLOMERULAR FILTRATION RATE. ESTIMATED GFR IS NOT APPLICABLE FOR DIALYSIS PATIENTS. PROTHROMBIN [id number] 05:14:00* Test Item Value Reference Range Comments PROTIME (BEAKER) (test hyhd=922) 22.8 seconds 11.7-14.7 INR (BEAKER) (test irjm=743) 2.0 <=5.9 RECOMMENDED COUMADIN/WARFARIN INR THERAPY RANGESSTANDARD DOSE: 2.0 - 3.0 Inclu mainor: PROPHYLAXIS for venous thrombosis, systemic embolization; TREATMENT for reilly ous thrombosis and/or pulmonary embolus.HIGH RISK: Target INR is 2.5-3.5 for pat ients with mechanical heart valves.POCT-GLUCOSE [id number] 22:20:00* Test Item Value Reference Range Comments POC-GLUCOSE METER (BEAKER) (test eakv=2231) 122 mg/dL 70-110 TESTED AT [facility] [address] [facility] [address] RAD, ABDOMEN, 2 [id number] 20:44:00Reason for exam:->abdominal distension FINAL REPORT CLINICAL HISTORY: Abdominal distention COMP ARISON: None. FINDINGS: 3 upright and supine views of the abdomen are submitted. The abdominal bowel gas pattern is nonspecific but grossly unobstructed. There is no focus of gas dilated large or small bowel. There is a normal volume of sto ol and gas in normal caliber large intestine. No free air seen under the diaphra gm. Post cystectomy clips overlie the right upper quadrant. A left-sided nephrou reteral stent is in place. Vascular calcifications are present in the abdomen an d pelvis. There is sigmoid thoracolumbar scoliosis. Signed: Nick Velez MDRepo rt Verified Date/Time: 07/11/2018 20:44:20 Reading Location: [address] Reading Room Electronically signed by: NICK VELEZ M.D. on 2018 08:44 PM BASIC METABOLIC [id number] 04:57:00* Test Item Value Reference Range Comments SODIUM (BEAKER) (test xmyb=736) 141 meq/L 136-145 POTASSIUM (BEAKER) (test scid=570) 4.1 meq/L 3.5-5.1 CHLORIDE (BEAKER) (test cvoc=845) 107 meq/L 98-107 CO2 (BEAKER) (test stds=819) 24 meq/L 22-29 BLOOD UREA NITROGEN (BEAKER) (test mpjh=748) 40 mg/dL 7-21 CREATININE (BEAKER) (test ajkn=397) 1.58 mg/dL 0.57-1.25 GLUCOSE RANDOM (BEAKER) (test undh=209) 99 mg/dL 70-105 CALCIUM (BEAKER) (test eaqn=156) 9.2 mg/dL 8.4-10.2 EGFR (BEAKER) (test sumr=3777) 38 mL/min/1.73 sq m ESTIMATED GFR IS NOT ACCURATE CREATININE CLEARANCE IN PREDICTING GLOMERULAR FILTRATION RATE. ESTIMATED GFR IS NOT APPLICABLE FOR DIALYSIS PATIENTS. PROTHROMBIN TIME/[id number] 04:21:00* Test Item Value Reference Range Comments PROTIME (BEAKER) (test nbnz=806) 21.1 seconds 11.7-14.7 INR (BEAKER) (test fvhh=488) 1.8 <=5.9 RECOMMENDED COUMADIN/WARFARIN INR THERAPY RANGESSTANDARD DOSE: 2.0 - 3.0 Inclu mainor: PROPHYLAXIS for venous thrombosis, systemic embolization; TREATMENT for reilly ous thrombosis and/or pulmonary embolus.HIGH RISK: Target INR is 2.5-3.5 for pat ients with mechanical heart valves.CBC W/PLT COUNT & AUTO [id number] 09:47:00* Test Item Value Reference Range Comments WHITE BLOOD CELL COUNT (BEAKER) (test dfcf=024) 9.0 K/ L 3.5-10.5 RED BLOOD CELL COUNT (BEAKER) (test rfmx=596) 3.66 M/ L 3.93-5.22 HEMOGLOBIN (BEAKER) (test azkf=331) 10.5 GM/DL 11.2-15.7 HEMATOCRIT (BEAKER) (test zscr=371) 33.2 % 34.1-44.9 MEAN CORPUSCULAR VOLUME (BEAKER) (test hvjl=115) 90.7 fL 79.4-94.8 MEAN CORPUSCULAR HEMOGLOBIN (BEAKER) (test yidk=943) 28.7 pg 25.6-32.2 MEAN CORPUSCULAR HEMOGLOBIN CONC (BEAKER) (test wrrr=855) 31.6 GM/DL 32.2-35.5 RED CELL DISTRIBUTION WIDTH (BEAKER) (test rpph=917) 15.0 % 11.7-14.4 PLATELET COUNT (BEAKER) (test pzxy=177) 337 K/CU MM 150-450 MEAN PLATELET VOLUME (BEAKER) (test kuud=772) 10.7 fL 9.4-12.3 NUCLEATED RED BLOOD CELLS (BEAKER) (test jsuf=901) 0 /100 WBC 0-0 NEUTROPHILS RELATIVE PERCENT (BEAKER) (test mtvu=389) 56 % LYMPHOCYTES RELATIVE PERCENT (BEAKER) (test dnks=112) 28 % MONOCYTES RELATIVE PERCENT (BEAKER) (test goqq=399) 9 % EOSINOPHILS RELATIVE PERCENT (BEAKER) (test fsoj=629) 6 % BASOPHILS RELATIVE PERCENT (BEAKER) (test nytj=598) 1 % NEUTROPHILS ABSOLUTE COUNT (BEAKER) (test jqoz=979) 5.07 K/ L 1.56-6.13 LYMPHOCYTES ABSOLUTE COUNT (BEAKER) (test ajqx=454) 2.51 K/ L 1.18-3.74 MONOCYTES ABSOLUTE COUNT (BEAKER) (test zdle=677) 0.77 K/ L 0.24-0.36 EOSINOPHILS ABSOLUTE COUNT (BEAKER) (test tovr=287) 0.51 K/ L 0.04-0.36 BASOPHILS ABSOLUTE COUNT (BEAKER) (test iunn=807) 0.09 K/ L 0.01-0.08 IMMATURE GRANULOCYTES-RELATIVE PERCENT (BEAKER) (test qrlo=0655) 1 % 0-1 BASIC METABOLIC [id number] 05:26:00* Test Item Value Reference Range Comments SODIUM (BEAKER) (test ebnj=094) 142 meq/L 136-145 POTASSIUM (BEAKER) (test rtfh=725) 3.8 meq/L 3.5-5.1 CHLORIDE (BEAKER) (test ywuf=821) 107 meq/L 98-107 CO2 (BEAKER) (test mwnb=590) 25 meq/L 22-29 BLOOD UREA NITROGEN (BEAKER) (test hcah=545) 39 mg/dL 7-21 CREATININE (BEAKER) (test mchn=743) 1.87 mg/dL 0.57-1.25 GLUCOSE RANDOM (BEAKER) (test ztwe=537) 116 mg/dL 70-105 CALCIUM (BEAKER) (test xqnb=447) 9.4 mg/dL 8.4-10.2 EGFR (BEAKER) (test jwxk=1185) 31 mL/min/1.73 sq m ESTIMATED GFR IS NOT ACCURATE CREATININE CLEARANCE IN PREDICTING GLOMERULAR FILTRATION RATE. ESTIMATED GFR IS NOT APPLICABLE FOR DIALYSIS PATIENTS. PROTHROMBIN TIME/[id number] 05:08:00* Test Item Value Reference Range Comments PROTIME (BEAKER) (test kaah=655) 18.6 seconds 11.7-14.7 INR (BEAKER) (test abgz=508) 1.5 <=5.9 RECOMMENDED COUMADIN/WARFARIN INR THERAPY RANGESSTANDARD DOSE: 2.0 - 3.0 Inclu mainor: PROPHYLAXIS for venous thrombosis, systemic embolization; TREATMENT for reilly ous thrombosis and/or pulmonary embolus.HIGH RISK: Target INR is 2.5-3.5 for pat ients with mechanical heart valves.BASIC METABOLIC [id number] 07:05:00* Test Item Value Reference Range Comments SODIUM (BEAKER) (test addj=313) 139 meq/L 136-145 POTASSIUM (BEAKER) (test crvs=089) 3.9 meq/L 3.5-5.1 CHLORIDE (BEAKER) (test xqiu=642) 106 meq/L 98-107 CO2 (BEAKER) (test kali=403) 25 meq/L 22-29 BLOOD UREA NITROGEN (BEAKER) (test jwhv=130) 35 mg/dL 7-21 CREATININE (BEAKER) (test twvo=082) 1.79 mg/dL 0.57-1.25 GLUCOSE RANDOM (BEAKER) (test mfhm=856) 96 mg/dL 70-105 CALCIUM (BEAKER) (test umfb=652) 9.0 mg/dL 8.4-10.2 EGFR (BEAKER) (test vccy=8015) 33 mL/min/1.73 sq m ESTIMATED GFR IS NOT ACCURATE CREATININE CLEARANCE IN PREDICTING GLOMERULAR FILTRATION RATE. ESTIMATED GFR IS NOT APPLICABLE FOR DIALYSIS PATIENTS. PROTHROMBIN TIME/[id number] 07:01:00* Test Item Value Reference Range Comments PROTIME (BEAKER) (test ibiq=761) 17.6 seconds 11.7-14.7 INR (BEAKER) (test szrp=500) 1.4 <=5.9 RECOMMENDED COUMADIN/WARFARIN INR THERAPY RANGESSTANDARD DOSE: 2.0 - 3.0 Inclu mainor: PROPHYLAXIS for venous thrombosis, systemic embolization; TREATMENT for reilly ous thrombosis and/or pulmonary embolus.HIGH RISK: Target INR is 2.5-3.5 for pat ients with mechanical heart valves.CBC W/PLT COUNT & AUTO [id number] 06:34:00* Test Item Value Reference Range Comments WHITE BLOOD CELL COUNT (BEAKER) (test iucj=276) 9.6 K/ L 3.5-10.5 RED BLOOD CELL COUNT (BEAKER) (test ikyt=945) 3.58 M/ L 3.93-5.22 HEMOGLOBIN (BEAKER) (test ngxm=574) 10.2 GM/DL 11.2-15.7 HEMATOCRIT (BEAKER) (test cuex=277) 32.3 % 34.1-44.9 MEAN CORPUSCULAR VOLUME (BEAKER) (test mdwi=453) 90.2 fL 79.4-94.8 MEAN CORPUSCULAR HEMOGLOBIN (BEAKER) (test egml=152) 28.5 pg 25.6-32.2 MEAN CORPUSCULAR HEMOGLOBIN CONC (BEAKER) (test rlrd=976) 31.6 GM/DL 32.2-35.5 RED CELL DISTRIBUTION WIDTH (BEAKER) (test edro=656) 15.0 % 11.7-14.4 PLATELET COUNT (BEAKER) (test lebf=615) 283 K/CU MM 150-450 MEAN PLATELET VOLUME (BEAKER) (test wafk=782) 10.9 fL 9.4-12.3 NUCLEATED RED BLOOD CELLS (BEAKER) (test tqsy=724) 0 /100 WBC 0-0 NEUTROPHILS RELATIVE PERCENT (BEAKER) (test ierq=995) 51 % LYMPHOCYTES RELATIVE PERCENT (BEAKER) (test srns=573) 33 % MONOCYTES RELATIVE PERCENT (BEAKER) (test teos=474) 9 % EOSINOPHILS RELATIVE PERCENT (BEAKER) (test gvdo=527) 5 % BASOPHILS RELATIVE PERCENT (BEAKER) (test cycd=661) 1 % NEUTROPHILS ABSOLUTE COUNT (BEAKER) (test mqrj=943) 4.91 K/ L 1.56-6.13 LYMPHOCYTES ABSOLUTE COUNT (BEAKER) (test zphd=454) 3.16 K/ L 1.18-3.74 MONOCYTES ABSOLUTE COUNT (BEAKER) (test idxw=166) 0.84 K/ L 0.24-0.36 EOSINOPHILS ABSOLUTE COUNT (BEAKER) (test jivx=784) 0.50 K/ L 0.04-0.36 BASOPHILS ABSOLUTE COUNT (BEAKER) (test wjsg=387) 0.07 K/ L 0.01-0.08 IMMATURE GRANULOCYTES-RELATIVE PERCENT (BEAKER) (test zych=9760) 1 % 0-1 SODIUM, RANDOM [id number] 22:45:00* Test Item Value Reference Range Comments SODIUM URINE (BEAKER) (test fzwb=665) 20 meq/L Reference Range: No NormalsCREATININE, RANDOM [id number] 22:42:00* Test Item Value Reference Range Comments CREATININE URINE (BEAKER) (test tggv=912) 154.8 mg/dL Reference Range: No NormalsVITAMIN D, [id number] 08:13:00* Test Item Value Reference Range Comments VITAMIN D 25-OH (BEAKER) (test ovjp=2111) 27.8 ng/mL 6.6-49.9 Effective 12/29/2016: Reference Range ChangeNew: 6.6-49.9 ng/mL Previous: 13.0 -47.8 ng/mLRecommended Vitamin D Target Range: 30.0-40.0 ng/mLBASIC METABOLIC [id number] 08:07:00* Test Item Value Reference Range Comments SODIUM (BEAKER) (test jngh=512) 137 meq/L 136-145 POTASSIUM (BEAKER) (test wivw=230) 4.0 meq/L 3.5-5.1 CHLORIDE (BEAKER) (test bfug=001) 105 meq/L 98-107 CO2 (BEAKER) (test sxlm=896) 23 meq/L 22-29 BLOOD UREA NITROGEN (BEAKER) (test bncs=468) 31 mg/dL 7-21 CREATININE (BEAKER) (test jurw=138) 2.13 mg/dL 0.57-1.25 GLUCOSE RANDOM (BEAKER) (test qmzu=442) 86 mg/dL 70-105 CALCIUM (BEAKER) (test nodl=064) 9.1 mg/dL 8.4-10.2 EGFR (BEAKER) (test hzwv=5046) 27 mL/min/1.73 sq m ESTIMATED GFR IS NOT ACCURATE CREATININE CLEARANCE IN PREDICTING GLOMERULAR FILTRATION RATE. ESTIMATED GFR IS NOT APPLICABLE FOR DIALYSIS PATIENTS. [id number] 08:01:00* Test Item Value Reference Range Comments PHOSPHORUS (BEAKER) (test anrx=510) 3.3 mg/dL 2.3-4.7 IRON, TIBC, % SAT. (WITHOUT FERRITIN)2018-07-08 07:50:00* Test Item Value Reference Range Comments IRON (BEAKER) (test hbia=758) 22.0 ug/dL 40.0-160.0 TOTAL IRON BINDING CAPACITY (BEAKER) (test cdcg=196) 244 ug/dL 250-450 IRON % SATURATION (2) (BEAKER) (test cclc=2296) 9 % 20-55 [id number] 05:45:00* Test Item Value Reference Range Comments FERRITIN (BEAKER) (test iwhc=280) 258 ng/mL 5-275 PTH, [id number] 05:30:00* Test Item Value Reference Range Comments PARATHYROID HORMONE INTACT (BEAKER) (test bioo=558) 73.4 pg/mL 8.5-72.5 PROTHROMBIN TIME/[id number] 05:19:00* Test Item Value Reference Range Comments PROTIME (BEAKER) (test plhr=752) 16.5 seconds 11.7-14.7 INR (BEAKER) (test kouj=346) 1.3 <=5.9 RECOMMENDED COUMADIN/WARFARIN INR THERAPY RANGESSTANDARD DOSE: 2.0 - 3.0 Inclu mainor: PROPHYLAXIS for venous thrombosis, systemic embolization; TREATMENT for reilly ous thrombosis and/or pulmonary embolus.HIGH RISK: Target INR is 2.5-3.5 for pat ients with mechanical heart valves.CBC W/PLT COUNT & AUTO [id number] 05:02:00* Test Item Value Reference Range Comments WHITE BLOOD CELL COUNT (BEAKER) (test oeyz=267) 10.1 K/ L 3.5-10.5 RED BLOOD CELL COUNT (BEAKER) (test wknz=219) 3.63 M/ L 3.93-5.22 HEMOGLOBIN (BEAKER) (test pwgp=638) 10.4 GM/DL 11.2-15.7 HEMATOCRIT (BEAKER) (test xbcj=875) 33.3 % 34.1-44.9 MEAN CORPUSCULAR VOLUME (BEAKER) (test ofcz=886) 91.7 fL 79.4-94.8 MEAN CORPUSCULAR HEMOGLOBIN (BEAKER) (test lrdd=097) 28.7 pg 25.6-32.2 MEAN CORPUSCULAR HEMOGLOBIN CONC (BEAKER) (test mhwj=018) 31.2 GM/DL 32.2-35.5 RED CELL DISTRIBUTION WIDTH (BEAKER) (test lkku=030) 15.3 % 11.7-14.4 PLATELET COUNT (BEAKER) (test bcat=885) 283 K/CU MM 150-450 MEAN PLATELET VOLUME (BEAKER) (test bijb=064) 10.8 fL 9.4-12.3 NUCLEATED RED BLOOD CELLS (BEAKER) (test hmfm=793) 0 /100 WBC 0-0 NEUTROPHILS RELATIVE PERCENT (BEAKER) (test iddh=330) 53 % LYMPHOCYTES RELATIVE PERCENT (BEAKER) (test ntha=360) 30 % MONOCYTES RELATIVE PERCENT (BEAKER) (test irmd=287) 10 % EOSINOPHILS RELATIVE PERCENT (BEAKER) (test hsvv=787) 5 % BASOPHILS RELATIVE PERCENT (BEAKER) (test yraj=839) 0 % NEUTROPHILS ABSOLUTE COUNT (BEAKER) (test tpcp=137) 5.39 K/ L 1.56-6.13 LYMPHOCYTES ABSOLUTE COUNT (BEAKER) (test sbzv=444) 3.03 K/ L 1.18-3.74 MONOCYTES ABSOLUTE COUNT (BEAKER) (test dkay=896) 1.05 K/ L 0.24-0.36 EOSINOPHILS ABSOLUTE COUNT (BEAKER) (test mdlu=283) 0.49 K/ L 0.04-0.36 BASOPHILS ABSOLUTE COUNT (BEAKER) (test nhwb=920) 0.04 K/ L 0.01-0.08 IMMATURE GRANULOCYTES-RELATIVE PERCENT (BEAKER) (test axau=6738) 1 % 0-1 ANG, NEPHROSTOMY, PERC, EXTERNAL [id number] 09:19:00Left Percutaneous nephrostomy / nephroureteral catheter placement. [facility] urologyReason for exam:->severe left hydroureter and hydronephrosisFINAL REPORT Procedure: Left percutaneous nephrostomy with placement [...] was placed into the bladder. An 8.5 Indonesian internal/external nephroureteral stent was then introduced over the guidewire and placed with its tip in the bladder. The proximal loop was coiled in the renal pelvis and the catheter was left to external drainage overnight. CONCLUSION: Indeterminate distal ureteral obstruction. Successful placement of nephroureteral stent with tip in the bladd er. Comment: After approximately 24 hours, the nephroureteral stent could be cap ped to allow internal drainage. Signed: Dex Romo MDReport Verified Date/Jim e: 07/07/2018 09:19:08 Reading Location: [address] Body Reading Room C METABOLIC [id number] 03:04:00* Test Item Value Reference Range Comments SODIUM (BEAKER) (test dtuc=819) 140 meq/L 136-145 POTASSIUM (BEAKER) (test nuve=163) 3.9 meq/L 3.5-5.1 CHLORIDE (BEAKER) (test vjhg=468) 107 meq/L 98-107 CO2 (BEAKER) (test ywqd=486) 23 meq/L 22-29 BLOOD UREA NITROGEN (BEAKER) (test pxzj=708) 26 mg/dL 7-21 CREATININE (BEAKER) (test mvui=460) 2.05 mg/dL 0.57-1.25 GLUCOSE RANDOM (BEAKER) (test ueyd=408) 101 mg/dL 70-105 CALCIUM (BEAKER) (test qzvu=823) 9.1 mg/dL 8.4-10.2 EGFR (BEAKER) (test kxag=4197) 28 mL/min/1.73 sq m ESTIMATED GFR IS NOT ACCURATE CREATININE CLEARANCE IN PREDICTING GLOMERULAR FILTRATION RATE. ESTIMATED GFR IS NOT APPLICABLE FOR DIALYSIS PATIENTS. PT/[id number] 03:03:00* Test Item Value Reference Range Comments PROTIME (BEAKER) (test spjm=805) 17.3 seconds 11.7-14.7 INR (BEAKER) (test yflv=081) 1.4 <=5.9 PARTIAL THROMBOPLASTIN TIME (BEAKER) (test qxeb=297) 33.1 seconds 22.5-36.0 RECOMMENDED COUMADIN/WARFARIN INR THERAPY RANGESSTANDARD DOSE: 2.0 - 3.0 Inclu mainor: PROPHYLAXIS for venous thrombosis, systemic embolization; TREATMENT for reilly ous thrombosis and/or pulmonary embolus.HIGH RISK: Target INR is 2.5-3.5 for pat ients with mechanical heart valves.PROTHROMBIN TIME/[id number] 03:02:00* Test Item Value Reference Range Comments PROTIME (BEAKER) (test pdle=061) 17.3 seconds 11.7-14.7 INR (BEAKER) (test iuuo=690) 1.4 <=5.9 RECOMMENDED COUMADIN/WARFARIN INR THERAPY RANGESSTANDARD DOSE: 2.0 - 3.0 Inclu mainor: PROPHYLAXIS for venous thrombosis, systemic embolization; TREATMENT for reilly ous thrombosis and/or pulmonary embolus.HIGH RISK: Target INR is 2.5-3.5 for pat ients with mechanical heart valves.BASIC METABOLIC [id number] 09:44:00* Test Item Value Reference Range Comments SODIUM (BEAKER) (test buug=167) 140 meq/L 136-145 POTASSIUM (BEAKER) (test gryr=763) 4.4 meq/L 3.5-5.1 CHLORIDE (BEAKER) (test oynu=004) 106 meq/L 98-107 CO2 (BEAKER) (test xaij=577) 24 meq/L 22-29 BLOOD UREA NITROGEN (BEAKER) (test dxxj=618) 20 mg/dL 7-21 CREATININE (BEAKER) (test ourj=977) 1.98 mg/dL 0.57-1.25 GLUCOSE RANDOM (BEAKER) (test rhpd=139) 90 mg/dL 70-105 CALCIUM (BEAKER) (test atba=374) 9.3 mg/dL 8.4-10.2 EGFR (BEAKER) (test mmgz=5168) 29 mL/min/1.73 sq m ESTIMATED GFR IS NOT ACCURATE CREATININE CLEARANCE IN PREDICTING GLOMERULAR FILTRATION RATE. ESTIMATED GFR IS NOT APPLICABLE FOR DIALYSIS PATIENTS. PT/[id number] 09:29:00* Test Item Value Reference Range Comments PROTIME (BEAKER) (test yndp=194) 18.6 seconds 11.7-14.7 INR (BEAKER) (test unex=575) 1.6 <=5.9 PARTIAL THROMBOPLASTIN TIME (BEAKER) (test zmfl=077) 37.1 seconds 22.5-36.0 RECOMMENDED COUMADIN/WARFARIN INR THERAPY RANGESSTANDARD DOSE: 2.0 - 3.0 Inclu mainor: PROPHYLAXIS for venous thrombosis, systemic embolization; TREATMENT for reilly ous thrombosis and/or pulmonary embolus.HIGH RISK: Target INR is 2.5-3.5 for pat ients with mechanical heart valves.[id number] 09:29:00* Test Item Value Reference Range Comments PARTIAL THROMBOPLASTIN TIME (BEAKER) (test llmv=542) 37.1 seconds 22.5-36.0 CBC W/PLT COUNT & AUTO [id number] 09:22:00* Test Item Value Reference Range Comments WHITE BLOOD CELL COUNT (BEAKER) (test pcnk=004) 8.8 K/ L 3.5-10.5 RED BLOOD CELL COUNT (BEAKER) (test odbr=951) 3.91 M/ L 3.93-5.22 HEMOGLOBIN (BEAKER) (test xffi=418) 11.1 GM/DL 11.2-15.7 HEMATOCRIT (BEAKER) (test hqit=637) 35.2 % 34.1-44.9 MEAN CORPUSCULAR VOLUME (BEAKER) (test uzpf=589) 90.0 fL 79.4-94.8 MEAN CORPUSCULAR HEMOGLOBIN (BEAKER) (test wlyi=473) 28.4 pg 25.6-32.2 MEAN CORPUSCULAR HEMOGLOBIN CONC (BEAKER) (test pzjf=838) 31.5 GM/DL 32.2-35.5 RED CELL DISTRIBUTION WIDTH (BEAKER) (test bdxm=550) 14.8 % 11.7-14.4 PLATELET COUNT (BEAKER) (test hkbs=714) 273 K/CU MM 150-450 MEAN PLATELET VOLUME (BEAKER) (test jnus=094) 10.8 fL 9.4-12.3 NUCLEATED RED BLOOD CELLS (BEAKER) (test gsmb=401) 0 /100 WBC 0-0 NEUTROPHILS RELATIVE PERCENT (BEAKER) (test orkp=712) 62 % LYMPHOCYTES RELATIVE PERCENT (BEAKER) (test lqeu=861) 25 % MONOCYTES RELATIVE PERCENT (BEAKER) (test wzom=490) 11 % EOSINOPHILS RELATIVE PERCENT (BEAKER) (test amsa=202) 1 % BASOPHILS RELATIVE PERCENT (BEAKER) (test anax=787) 1 % NEUTROPHILS ABSOLUTE COUNT (BEAKER) (test lmaf=755) 5.47 K/ L 1.56-6.13 LYMPHOCYTES ABSOLUTE COUNT (BEAKER) (test dtiv=278) 2.18 K/ L 1.18-3.74 MONOCYTES ABSOLUTE COUNT (BEAKER) (test mmiy=590) 0.93 K/ L 0.24-0.36 EOSINOPHILS ABSOLUTE COUNT (BEAKER) (test yuif=898) 0.10 K/ L 0.04-0.36 BASOPHILS ABSOLUTE COUNT (BEAKER) (test cnll=251) 0.05 K/ L 0.01-0.08 IMMATURE GRANULOCYTES-RELATIVE PERCENT (BEAKER) (test mxkz=2259) 1 % 0-1 PROTHROMBIN TIME/[id number] 06:40:00* Test Item Value Reference Range Comments PROTIME (BEAKER) (test vcws=518) 18.1 seconds 11.7-14.7 INR (BEAKER) (test umsg=472) 1.5 <=5.9 RECOMMENDED COUMADIN/WARFARIN INR THERAPY RANGESSTANDARD DOSE: 2.0 - 3.0 Inclu mainor: PROPHYLAXIS for venous thrombosis, systemic embolization; TREATMENT for reilly ous thrombosis and/or pulmonary embolus.HIGH RISK: Target INR is 2.5-3.5 for pat ients with mechanical heart valves.FL, [employer] IN OR/30 MINUTE INCREMENTS 2018-07-05 22:52:00Reason for exam:->Stent placementFINAL REPORT Operative radiographs, 07/05/2018 70 fluoroscopic images [...] was left in place.. Signed: Dex Romo MDReport Verified Date/Time: 07/05/2018 22:52:04 Reading Location: [facility] B1 C013W Consult Reading Room LT BLOOD, [id number] 05:50:00* Test Item Value Reference Range Comments FECAL OCCULT BLOOD (BEAKER) (test qrrg=707) Negative Negative CBC W/PLT COUNT & AUTO [id number] 05:37:00* Test Item Value Reference Range Comments WHITE BLOOD CELL COUNT (BEAKER) (test vdxi=154) 7.9 K/ L 3.5-10.5 RED BLOOD CELL COUNT (BEAKER) (test vgfp=112) 3.69 M/ L 3.93-5.22 HEMOGLOBIN (BEAKER) (test nkno=479) 10.6 GM/DL 11.2-15.7 HEMATOCRIT (BEAKER) (test fpzz=138) 33.4 % 34.1-44.9 MEAN CORPUSCULAR VOLUME (BEAKER) (test ynqp=487) 90.5 fL 79.4-94.8 MEAN CORPUSCULAR HEMOGLOBIN (BEAKER) (test wnsm=752) 28.7 pg 25.6-32.2 MEAN CORPUSCULAR HEMOGLOBIN CONC (BEAKER) (test hvvg=435) 31.7 GM/DL 32.2-35.5 RED CELL DISTRIBUTION WIDTH (BEAKER) (test avhm=587) 14.5 % 11.7-14.4 PLATELET COUNT (BEAKER) (test uage=751) 255 K/CU MM 150-450 MEAN PLATELET VOLUME (BEAKER) (test takr=293) 10.9 fL 9.4-12.3 NUCLEATED RED BLOOD CELLS (BEAKER) (test lcua=884) 0 /100 WBC 0-0 NEUTROPHILS RELATIVE PERCENT (BEAKER) (test dcse=166) 38 % LYMPHOCYTES RELATIVE PERCENT (BEAKER) (test mdom=463) 42 % MONOCYTES RELATIVE PERCENT (BEAKER) (test pdts=683) 10 % EOSINOPHILS RELATIVE PERCENT (BEAKER) (test tpin=204) 9 % BASOPHILS RELATIVE PERCENT (BEAKER) (test xidz=457) 1 % NEUTROPHILS ABSOLUTE COUNT (BEAKER) (test euwo=190) 3.01 K/ L 1.56-6.13 LYMPHOCYTES ABSOLUTE COUNT (BEAKER) (test svll=720) 3.30 K/ L 1.18-3.74 MONOCYTES ABSOLUTE COUNT (BEAKER) (test zkuq=441) 0.80 K/ L 0.24-0.36 EOSINOPHILS ABSOLUTE COUNT (BEAKER) (test stxu=255) 0.72 K/ L 0.04-0.36 BASOPHILS ABSOLUTE COUNT (BEAKER) (test jezx=226) 0.08 K/ L 0.01-0.08 IMMATURE GRANULOCYTES-RELATIVE PERCENT (BEAKER) (test ouxf=9808) 0 % 0-1 [id number] 05:35:00* Test Item Value Reference Range Comments MAGNESIUM (BEAKER) (test afyk=255) 1.8 mg/dL 1.6-2.6 BASIC METABOLIC [id number] 05:35:00* Test Item Value Reference Range Comments SODIUM (BEAKER) (test cloa=253) 142 meq/L 136-145 POTASSIUM (BEAKER) (test rejr=254) 3.7 meq/L 3.5-5.1 CHLORIDE (BEAKER) (test otxa=783) 109 meq/L 98-107 CO2 (BEAKER) (test byev=726) 25 meq/L 22-29 BLOOD UREA NITROGEN (BEAKER) (test uepl=763) 16 mg/dL 7-21 CREATININE (BEAKER) (test kzlg=112) 1.90 mg/dL 0.57-1.25 GLUCOSE RANDOM (BEAKER) (test scuv=036) 91 mg/dL 70-105 CALCIUM (BEAKER) (test lojt=214) 9.1 mg/dL 8.4-10.2 EGFR (BEAKER) (test nwts=9694) 31 mL/min/1.73 sq m ESTIMATED GFR IS NOT ACCURATE CREATININE CLEARANCE IN PREDICTING GLOMERULAR FILTRATION RATE. ESTIMATED GFR IS NOT APPLICABLE FOR DIALYSIS PATIENTS. [id number] 05:28:00* Test Item Value Reference Range Comments PARTIAL THROMBOPLASTIN TIME (BEAKER) (test vdba=036) 90.4 seconds 22.5-36.0 PROTHROMBIN TIME/[id number] 05:25:00* Test Item Value Reference Range Comments PROTIME (BEAKER) (test jpqw=118) 18.9 seconds 11.7-14.7 INR (BEAKER) (test srfi=669) 1.6 <=5.9 RECOMMENDED COUMADIN/WARFARIN INR THERAPY RANGESSTANDARD DOSE: 2.0 - 3.0 Inclu mainor: PROPHYLAXIS for venous thrombosis, systemic embolization; TREATMENT for reilly ous thrombosis and/or pulmonary embolus.HIGH RISK: Target INR is 2.5-3.5 for pat ients with mechanical heart valves.[id number] 21:48:00* Test Item Value Reference Range Comments PARTIAL THROMBOPLASTIN TIME (BEAKER) (test ggsy=508) 62.0 seconds 22.5-36.0 U/S, ENDOVAGINAL (EV)2018-07-04 15:27:00Reason for exam:->Uterine mass compressing uretersFINAL REPORT Ultrasound of the pelvis: Clinical diagnosis: Uterine mass compressing uretersComparison: No comparisonTechnique: Multiple transaxial and longitudinal images were obtained [...] ovary was not visualized. Free Fluid: Negative Impression:Calcified fibroids visualized within the posterior myometrial wall. A 5.3 cm lesion is visualized with distortion of the endometrium. The endometrium also demonstrates fluid. Given these findings in a postmenopausal female a neoplastic process is suspected. Signed: Shira Rubin ate/Time: 07/04/2018 15:27:37 Reading Location: [address] Ultrasound Reading Room [id number] 10:55:00* Test Item Value Reference Range Comments PARTIAL THROMBOPLASTIN TIME (BEAKER) (test ncob=663) 89.3 seconds 22.5-36.0 [id number] 04:54:00* Test Item Value Reference Range Comments MAGNESIUM (BEAKER) (test abgw=629) 1.7 mg/dL 1.6-2.6 BASIC METABOLIC [id number] 04:54:00* Test Item Value Reference Range Comments SODIUM (BEAKER) (test ftaf=115) 141 meq/L 136-145 POTASSIUM (BEAKER) (test xqpj=768) 3.6 meq/L 3.5-5.1 CHLORIDE (BEAKER) (test zjnb=169) 110 meq/L 98-107 CO2 (BEAKER) (test wcct=431) 23 meq/L 22-29 BLOOD UREA NITROGEN (BEAKER) (test eajy=020) 15 mg/dL 7-21 CREATININE (BEAKER) (test yrej=063) 1.76 mg/dL 0.57-1.25 GLUCOSE RANDOM (BEAKER) (test tafp=080) 96 mg/dL 70-105 CALCIUM (BEAKER) (test bmcc=716) 9.2 mg/dL 8.4-10.2 EGFR (BEAKER) (test mfhr=6233) 34 mL/min/1.73 sq m ESTIMATED GFR IS NOT ACCURATE CREATININE CLEARANCE IN PREDICTING GLOMERULAR FILTRATION RATE. ESTIMATED GFR IS NOT APPLICABLE FOR DIALYSIS PATIENTS. [id number] 04:38:00* Test Item Value Reference Range Comments PARTIAL THROMBOPLASTIN TIME (BEAKER) (test ltkf=583) 68.3 seconds 22.5-36.0 While on warfarin.PROTHROMBIN TIME/[id number] 04:36:00* Test Item Value Reference Range Comments PROTIME (BEAKER) (test sfqe=899) 19.8 seconds 11.7-14.7 INR (BEAKER) (test bzeq=891) 1.6 <=5.9 RECOMMENDED COUMADIN/WARFARIN INR THERAPY RANGESSTANDARD DOSE: 2.0 - 3.0 Inclu mainor: PROPHYLAXIS for venous thrombosis, systemic embolization; TREATMENT for reilly ous thrombosis and/or pulmonary embolus.HIGH RISK: Target INR is 2.5-3.5 for pat ients with mechanical heart valves.While on warfarin.CBC W/PLT COUNT & AUTO [id number] 04:31:00* Test Item Value Reference Range Comments WHITE BLOOD CELL COUNT (BEAKER) (test doma=058) 7.6 K/ L 3.5-10.5 RED BLOOD CELL COUNT (BEAKER) (test wvlt=578) 3.80 M/ L 3.93-5.22 HEMOGLOBIN (BEAKER) (test gzye=411) 10.9 GM/DL 11.2-15.7 HEMATOCRIT (BEAKER) (test xkwv=613) 34.3 % 34.1-44.9 MEAN CORPUSCULAR VOLUME (BEAKER) (test grhv=345) 90.3 fL 79.4-94.8 MEAN CORPUSCULAR HEMOGLOBIN (BEAKER) (test inwn=741) 28.7 pg 25.6-32.2 MEAN CORPUSCULAR HEMOGLOBIN CONC (BEAKER) (test bhre=753) 31.8 GM/DL 32.2-35.5 RED CELL DISTRIBUTION WIDTH (BEAKER) (test qlim=187) 14.5 % 11.7-14.4 PLATELET COUNT (BEAKER) (test gyjo=709) 274 K/CU MM 150-450 MEAN PLATELET VOLUME (BEAKER) (test uqax=905) 10.5 fL 9.4-12.3 NUCLEATED RED BLOOD CELLS (BEAKER) (test ofpk=736) 0 /100 WBC 0-0 NEUTROPHILS RELATIVE PERCENT (BEAKER) (test mczc=857) 43 % LYMPHOCYTES RELATIVE PERCENT (BEAKER) (test dpsn=810) 37 % MONOCYTES RELATIVE PERCENT (BEAKER) (test onwm=343) 10 % EOSINOPHILS RELATIVE PERCENT (BEAKER) (test zauj=976) 9 % BASOPHILS RELATIVE PERCENT (BEAKER) (test mjtb=569) 1 % NEUTROPHILS ABSOLUTE COUNT (BEAKER) (test oify=520) 3.26 K/ L 1.56-6.13 LYMPHOCYTES ABSOLUTE COUNT (BEAKER) (test mtrp=316) 2.79 K/ L 1.18-3.74 MONOCYTES ABSOLUTE COUNT (BEAKER) (test odmf=730) 0.77 K/ L 0.24-0.36 EOSINOPHILS ABSOLUTE COUNT (BEAKER) (test sfsh=519) 0.70 K/ L 0.04-0.36 BASOPHILS ABSOLUTE COUNT (BEAKER) (test mkse=401) 0.05 K/ L 0.01-0.08 IMMATURE GRANULOCYTES-RELATIVE PERCENT (BEAKER) (test dykr=2415) 0 % 0-1 [id number] 19:43:00* Test Item Value Reference Range Comments PARTIAL THROMBOPLASTIN TIME (BEAKER) (test jcwh=454) 103.6 seconds 22.5-36.0 URINALYSIS W/ [id number] 17:45:00* Test Item Value Reference Range Comments COLOR (BEAKER) (test vvsn=999) Colorless CLARITY (BEAKER) (test xidj=535) Clear SPECIFIC GRAVITY UA (BEAKER) (test flxg=608) 1.004 1.001-1.035 PH UA (BEAKER) (test hgvd=116) 6.5 5.0-8.0 PROTEIN UA (BEAKER) (test kzog=157) Negative Negative GLUCOSE UA (BEAKER) (test dqrw=700) Negative Negative KETONES UA (BEAKER) (test pfij=814) Negative Negative BILIRUBIN UA (BEAKER) (test vpqp=770) Negative Negative BLOOD UA (BEAKER) (test rzfr=449) Negative Negative NITRITE UA (BEAKER) (test slfg=077) Negative Negative LEUKOCYTE ESTERASE UA (BEAKER) (test jhvk=623) Negative Negative UROBILINOGEN UA (BEAKER) (test veht=001) 0.2 mg/dL 0.2-1.0 RBC UA (BEAKER) (test zcwu=453) < /HPF WBC UA (BEAKER) (test wdjo=357) < /HPF BACTERIA (BEAKER) (test yspx=519) Occasional SQUAMOUS EPITHELIAL (BEAKER) (test qdat=197) < /HPF SOURCE(BEAKER) (test cukq=8689) MR, ABDOMEN, WITHOUT [id number] 16:13:00FINAL REPORT MR of the Abdomen and pelvis [...] normal in size. There is moderate left hyd ronephrosis and hydroureter. A 1.5 x 1.6 cm cyst is seen in the upper pole right kidney. Uterus is prominent. A heterogeneous mass is seen in the body of the ut erus measuring 4.6 x 4.8 cm. A 4.6 x 3.8 cm mass is seen in the left adnexa with obstruction of the distal left ureter. The right ovary is not visualized. The s mall and large bowel are prominent. Appendix is not visualized. IMPRESSION:1. Li mited examination secondary to lack of intravenous contrast.2. Left hydronephros is and hydroureter secondary to left adnexal mass.3. Suboptimal evaluation of th e uterus.3. Liver and right renal cysts. Signed: Oleksandr Dye ate/Time: 07/03/2018 16:13:37 Reading Location: [facility] C013Y CT Body Reading Ro om 2018-07-03 13:26:00* Test Item Value Reference Range Comments PARTIAL THROMBOPLASTIN TIME (BEAKER) (test aztu=658) 79.8 seconds 22.5-36.0 Heparin drip protocolMR, PELVIS, WITHOUT [id number] 10:45:00FINAL REPORT MRI of the abdomen without contrast, MRI of the pelvis without contrast. Clinical History: Adnexal mass, complex or solid Technique: Multiplanar and multisequence MR images of the abdomen are obtained before and after intravenous contrast administration. Multiplanar and multisequence MR images of the pelvis are obtained before and after intravenous contrast ad ministration. Contrast is administered to evaluate for neoplasm. Comparison: No priors Discussion: Abdomen: Liver is not cirrhotic in morphology. There are a f ew tiny T2 bright foci within the liver, which may represent cysts or biliary mcnally martomas. Gallbladder has been removed. The extra hepatic bile duct is prominent , and measures up to 1 cm in diameter Spleen is unremarkable. There is borderlin e prominence of the pancreatic duct in the head region, no peripancreatic fluid. There is severe left-sided hydronephrosis and hydroureter. In the interpolar ri ght kidney, a 1.7 cm fluid signal structure is most likely a cyst. There is dila tion of small bowel, which is fluid-filled, ileus versus small bowel obstruction . Note is made of colonic diverticulosis. No adenopathy. No ascites. Osseous str uctures demonstrate scoliosis and degenerative changes. No suspicious bony lesio n. Pelvis: Centered in the expected location of the uterus, there is a T1 and T 2 hypointense mass that measures approximately 5.5 x 5.6 x 7.9 cm, demonstrating diffusion restriction, highly suspicious for malignancy. Lobulated mass extendi ng toward the left pelvic sidewall may reflect the right extension of the tumor, versus regional charles metastasis, causing obstruction of the left ureter. It is unclear whether there is tumoral involvement of the sigmoid colon. On the right, a 1.2 cm soft tissue nodule immediately adjacent to a loop of small bowel is s uspicious for metastatic deposit as well. Bladder is unremarkable. Pelvic bony s tructures demonstrate degenerative changes, but no suspicious lesion is identifi ed. Impression: Pelvic mass as described, centered in the expected location of t he uterus, suspicious for uterine neoplasm, ovarian origin neoplasm is also poss ible, but less likely given the central location of the mass. There is tumor ext ension versus metastatic adenopathy at the left pelvic sidewall, causing obstruc tion of the left ureter. It is unclear whether there is tumoral involvement of t he sigmoid colon. Severe left hydronephrosis. Small bowel distention, which may reflect obstruction or ileus. Tiny cysts or biliary hamartomas in liver. Status post cholecystectomy. No specific prominence of the extrahepatic bile duct. Sign ed: Livier Lamb MDReport Verified Date/Time: 07/03/2018 10:45:35 Reading Location: [facility] C013X Ortho Consult Reading Room [id number] 06:48:00* Test Item Value Reference Range Comments MAGNESIUM (BEAKER) (test hojk=788) 1.8 mg/dL 1.6-2.6 BASIC METABOLIC [id number] 06:48:00* Test Item Value Reference Range Comments SODIUM (BEAKER) (test qshp=759) 140 meq/L 136-145 POTASSIUM (BEAKER) (test ktwp=374) 3.9 meq/L 3.5-5.1 CHLORIDE (BEAKER) (test wynq=717) 108 meq/L 98-107 CO2 (BEAKER) (test ariu=208) 23 meq/L 22-29 BLOOD UREA NITROGEN (BEAKER) (test mkvi=302) 13 mg/dL 7-21 CREATININE (BEAKER) (test exal=333) 1.60 mg/dL 0.57-1.25 GLUCOSE RANDOM (BEAKER) (test gmmo=112) 99 mg/dL 70-105 CALCIUM (BEAKER) (test xwqi=044) 9.5 mg/dL 8.4-10.2 EGFR (BEAKER) (test eeuw=0653) 37 mL/min/1.73 sq m ESTIMATED GFR IS NOT ACCURATE CREATININE CLEARANCE IN PREDICTING GLOMERULAR FILTRATION RATE. ESTIMATED GFR IS NOT APPLICABLE FOR DIALYSIS PATIENTS. [id number] 06:04:00* Test Item Value Reference Range Comments PARTIAL THROMBOPLASTIN TIME (BEAKER) (test dalc=435) 60.9 seconds 22.5-36.0 While on warfarin.PROTHROMBIN TIME/[id number] 06:02:00* Test Item Value Reference Range Comments PROTIME (BEAKER) (test gaee=786) 16.5 seconds 11.7-14.7 INR (BEAKER) (test uakn=419) 1.3 <=5.9 RECOMMENDED COUMADIN/WARFARIN INR THERAPY RANGESSTANDARD DOSE: 2.0 - 3.0 Inclu mainor: PROPHYLAXIS for venous thrombosis, systemic embolization; TREATMENT for reilly ous thrombosis and/or pulmonary embolus.HIGH RISK: Target INR is 2.5-3.5 for pat ients with mechanical heart valves.While on warfarin.[id number] 21:30:00* Test Item Value Reference Range Comments PARTIAL THROMBOPLASTIN TIME (BEAKER) (test tnhr=195) 57.3 seconds 22.5-36.0 [id number] 13:02:00* Test Item Value Reference Range Comments PARTIAL THROMBOPLASTIN TIME (BEAKER) (test pgsq=567) 89.7 seconds 22.5-36.0 [id number] 08:30:00* Test Item Value Reference Range Comments MAGNESIUM (BEAKER) (test ghce=919) 1.9 mg/dL 1.6-2.6 BASIC METABOLIC [id number] 08:30:00* Test Item Value Reference Range Comments SODIUM (BEAKER) (test edyz=906) 141 meq/L 136-145 POTASSIUM (BEAKER) (test yoca=495) 3.6 meq/L 3.5-5.1 CHLORIDE (BEAKER) (test rvde=153) 109 meq/L 98-107 CO2 (BEAKER) (test swnm=671) 23 meq/L 22-29 BLOOD UREA NITROGEN (BEAKER) (test nkok=580) 15 mg/dL 7-21 CREATININE (BEAKER) (test jmgf=277) 1.39 mg/dL 0.57-1.25 GLUCOSE RANDOM (BEAKER) (test aali=082) 106 mg/dL 70-105 CALCIUM (BEAKER) (test gidb=630) 9.1 mg/dL 8.4-10.2 EGFR (BEAKER) (test ptgp=7957) 44 mL/min/1.73 sq m ESTIMATED GFR IS NOT ACCURATE CREATININE CLEARANCE IN PREDICTING GLOMERULAR FILTRATION RATE. ESTIMATED GFR IS NOT APPLICABLE FOR DIALYSIS PATIENTS. B-TYPE NATRIURETIC FACTOR (BNP)2018-07-02 06:56:00* Test Item Value Reference Range Comments B-TYPE NATRIURETIC PEPTIDE (BEAKER) (test yrxj=583) 527 pg/mL 0-100 [id number] 05:57:00* Test Item Value Reference Range Comments PARTIAL THROMBOPLASTIN TIME (BEAKER) (test hqei=643) 95.2 seconds 22.5-36.0 While on warfarin.PROTHROMBIN TIME/[id number] 05:55:00* Test Item Value Reference Range Comments PROTIME (BEAKER) (test uqjp=563) 13.9 seconds 11.7-14.7 INR (BEAKER) (test jhjg=415) 1.0 <=5.9 RECOMMENDED COUMADIN/WARFARIN INR THERAPY RANGESSTANDARD DOSE: 2.0 - 3.0 Inclu mainor: PROPHYLAXIS for venous thrombosis, systemic embolization; TREATMENT for reilly ous thrombosis and/or pulmonary embolus.HIGH RISK: Target INR is 2.5-3.5 for pat ients with mechanical heart valves.While on warfarin.CBC W/PLT COUNT & AUTO [id number] 05:50:00* Test Item Value Reference Range Comments WHITE BLOOD CELL COUNT (BEAKER) (test gcpt=847) 8.4 K/ L 3.5-10.5 RED BLOOD CELL COUNT (BEAKER) (test yldb=092) 3.86 M/ L 3.93-5.22 HEMOGLOBIN (BEAKER) (test xpyc=552) 11.1 GM/DL 11.2-15.7 HEMATOCRIT (BEAKER) (test trid=121) 34.8 % 34.1-44.9 MEAN CORPUSCULAR VOLUME (BEAKER) (test ctjv=976) 90.2 fL 79.4-94.8 MEAN CORPUSCULAR HEMOGLOBIN (BEAKER) (test jlxq=951) 28.8 pg 25.6-32.2 MEAN CORPUSCULAR HEMOGLOBIN CONC (BEAKER) (test bovq=612) 31.9 GM/DL 32.2-35.5 RED CELL DISTRIBUTION WIDTH (BEAKER) (test rosc=016) 14.4 % 11.7-14.4 PLATELET COUNT (BEAKER) (test ymcz=858) 279 K/CU MM 150-450 MEAN PLATELET VOLUME (BEAKER) (test decp=841) 11.4 fL 9.4-12.3 NUCLEATED RED BLOOD CELLS (BEAKER) (test ivvu=867) 0 /100 WBC 0-0 NEUTROPHILS RELATIVE PERCENT (BEAKER) (test eulf=351) 50 % LYMPHOCYTES RELATIVE PERCENT (BEAKER) (test vjit=531) 32 % MONOCYTES RELATIVE PERCENT (BEAKER) (test gekj=011) 9 % EOSINOPHILS RELATIVE PERCENT (BEAKER) (test keyk=571) 7 % BASOPHILS RELATIVE PERCENT (BEAKER) (test xshx=931) 1 % NEUTROPHILS ABSOLUTE COUNT (BEAKER) (test hxmp=939) 4.16 K/ L 1.56-6.13 LYMPHOCYTES ABSOLUTE COUNT (BEAKER) (test cgej=821) 2.72 K/ L 1.18-3.74 MONOCYTES ABSOLUTE COUNT (BEAKER) (test qrcx=814) 0.79 K/ L 0.24-0.36 EOSINOPHILS ABSOLUTE COUNT (BEAKER) (test grfd=563) 0.62 K/ L 0.04-0.36 BASOPHILS ABSOLUTE COUNT (BEAKER) (test fbiz=477) 0.08 K/ L 0.01-0.08 IMMATURE GRANULOCYTES-RELATIVE PERCENT (BEAKER) (test phur=8254) 0 % 0-1 [id number] 22:06:00* Test Item Value Reference Range Comments PARTIAL THROMBOPLASTIN TIME (BEAKER) (test rmsj=363) 78.2 seconds 22.5-36.0 [id number] 13:31:00* Test Item Value Reference Range Comments PARTIAL THROMBOPLASTIN TIME (BEAKER) (test eqsf=644) 60.5 seconds 22.5-36.0 [id number] 06:51:00* Test Item Value Reference Range Comments MAGNESIUM (BEAKER) (test irzs=348) 1.8 mg/dL 1.6-2.6 BASIC METABOLIC [id number] 06:51:00* Test Item Value Reference Range Comments SODIUM (BEAKER) (test ulue=233) 141 meq/L 136-145 POTASSIUM (BEAKER) (test dleh=112) 3.5 meq/L 3.5-5.1 CHLORIDE (BEAKER) (test shmb=288) 110 meq/L 98-107 CO2 (BEAKER) (test mdss=688) 24 meq/L 22-29 BLOOD UREA NITROGEN (BEAKER) (test orvj=809) 24 mg/dL 7-21 CREATININE (BEAKER) (test kgry=643) 1.57 mg/dL 0.57-1.25 GLUCOSE RANDOM (BEAKER) (test dbdw=105) 103 mg/dL 70-105 CALCIUM (BEAKER) (test ufhj=434) 9.0 mg/dL 8.4-10.2 EGFR (BEAKER) (test rgui=9576) 38 mL/min/1.73 sq m ESTIMATED GFR IS NOT ACCURATE CREATININE CLEARANCE IN PREDICTING GLOMERULAR FILTRATION RATE. ESTIMATED GFR IS NOT APPLICABLE FOR DIALYSIS PATIENTS. PT/[id number] 06:07:00* Test Item Value Reference Range Comments PROTIME (BEAKER) (test huyt=780) 14.3 seconds 11.7-14.7 INR (BEAKER) (test ocui=103) 1.1 <=5.9 PARTIAL THROMBOPLASTIN TIME (BEAKER) (test dakc=313) 58.6 seconds 22.5-36.0 RECOMMENDED COUMADIN/WARFARIN INR THERAPY RANGESSTANDARD DOSE: 2.0 - 3.0 Inclu mainor: PROPHYLAXIS for venous thrombosis, systemic embolization; TREATMENT for reilly ous thrombosis and/or pulmonary embolus.HIGH RISK: Target INR is 2.5-3.5 for pat ients with mechanical heart valves.CBC W/PLT COUNT & AUTO [id number] 05:54:00* Test Item Value Reference Range Comments WHITE BLOOD CELL COUNT (BEAKER) (test sfpu=716) 8.6 K/ L 3.5-10.5 RED BLOOD CELL COUNT (BEAKER) (test uloc=363) 3.79 M/ L 3.93-5.22 HEMOGLOBIN (BEAKER) (test fbnz=764) 10.8 GM/DL 11.2-15.7 HEMATOCRIT (BEAKER) (test tswf=476) 34.1 % 34.1-44.9 MEAN CORPUSCULAR VOLUME (BEAKER) (test hatt=944) 90.0 fL 79.4-94.8 MEAN CORPUSCULAR HEMOGLOBIN (BEAKER) (test wpwe=718) 28.5 pg 25.6-32.2 MEAN CORPUSCULAR HEMOGLOBIN CONC (BEAKER) (test hyse=896) 31.7 GM/DL 32.2-35.5 RED CELL DISTRIBUTION WIDTH (BEAKER) (test dpti=557) 14.6 % 11.7-14.4 PLATELET COUNT (BEAKER) (test manx=146) 275 K/CU MM 150-450 MEAN PLATELET VOLUME (BEAKER) (test vshu=175) 10.4 fL 9.4-12.3 NUCLEATED RED BLOOD CELLS (BEAKER) (test fsai=844) 0 /100 WBC 0-0 NEUTROPHILS RELATIVE PERCENT (BEAKER) (test wiqn=785) 58 % LYMPHOCYTES RELATIVE PERCENT (BEAKER) (test dlik=764) 29 % MONOCYTES RELATIVE PERCENT (BEAKER) (test lqhd=300) 9 % EOSINOPHILS RELATIVE PERCENT (BEAKER) (test yrgz=264) 4 % BASOPHILS RELATIVE PERCENT (BEAKER) (test azrb=222) 1 % NEUTROPHILS ABSOLUTE COUNT (BEAKER) (test fpxg=420) 4.93 K/ L 1.56-6.13 LYMPHOCYTES ABSOLUTE COUNT (BEAKER) (test dvqs=131) 2.47 K/ L 1.18-3.74 MONOCYTES ABSOLUTE COUNT (BEAKER) (test kdxa=209) 0.75 K/ L 0.24-0.36 EOSINOPHILS ABSOLUTE COUNT (BEAKER) (test imij=012) 0.32 K/ L 0.04-0.36 BASOPHILS ABSOLUTE COUNT (BEAKER) (test rgic=158) 0.07 K/ L 0.01-0.08 IMMATURE GRANULOCYTES-RELATIVE PERCENT (BEAKER) (test jiku=3713) 0 % 0-1 [id number] 00:12:00* Test Item Value Reference Range Comments PARTIAL THROMBOPLASTIN TIME (BEAKER) (test xchp=737) 69.0 seconds 22.5-36.0 BASIC METABOLIC [id number] 13:39:00* Test Item Value Reference Range Comments SODIUM (BEAKER) (test cmtr=501) 140 meq/L 136-145 POTASSIUM (BEAKER) (test eonv=206) 4.2 meq/L 3.5-5.1 CHLORIDE (BEAKER) (test fqxj=496) 107 meq/L 98-107 CO2 (BEAKER) (test icgv=750) 22 meq/L 22-29 BLOOD UREA NITROGEN (BEAKER) (test sdwm=763) 27 mg/dL 7-21 CREATININE (BEAKER) (test xaou=540) 1.63 mg/dL 0.57-1.25 GLUCOSE RANDOM (BEAKER) (test upui=051) 84 mg/dL 70-105 CALCIUM (BEAKER) (test hymo=818) 9.3 mg/dL 8.4-10.2 EGFR (BEAKER) (test lkjf=5797) 37 mL/min/1.73 sq m ESTIMATED GFR IS NOT ACCURATE CREATININE CLEARANCE IN PREDICTING GLOMERULAR FILTRATION RATE. ESTIMATED GFR IS NOT APPLICABLE FOR DIALYSIS PATIENTS. PT/[id number] 13:35:00* Test Item Value Reference Range Comments PROTIME (BEAKER) (test zcxq=882) 14.2 seconds 11.7-14.7 INR (BEAKER) (test qbpb=829) 1.1 <=5.9 PARTIAL THROMBOPLASTIN TIME (BEAKER) (test cmjv=983) 29.0 seconds 22.5-36.0 RECOMMENDED COUMADIN/WARFARIN INR THERAPY RANGESSTANDARD DOSE: 2.0 - 3.0 Inclu mainor: PROPHYLAXIS for venous thrombosis, systemic embolization; TREATMENT for reilly ous thrombosis and/or pulmonary embolus.HIGH RISK: Target INR is 2.5-3.5 for pat ients with mechanical heart valves.6 hours after starting heparin infusion and a s indicated per sliding scale6 hours after starting heparin infusion and as tito cated per sliding [id number] 13:35:00* Test Item Value Reference Range Comments PARTIAL THROMBOPLASTIN TIME (BEAKER) (test kubm=238) 29.0 seconds 22.5-36.0 CBC W/PLT COUNT & AUTO [id number] 13:18:00* Test Item Value Reference Range Comments WHITE BLOOD CELL COUNT (BEAKER) (test jeiu=623) 10.1 K/ L 3.5-10.5 RED BLOOD CELL COUNT (BEAKER) (test pwri=480) 4.34 M/ L 3.93-5.22 HEMOGLOBIN (BEAKER) (test skrz=869) 12.4 GM/DL 11.2-15.7 HEMATOCRIT (BEAKER) (test ndlh=037) 39.1 % 34.1-44.9 MEAN CORPUSCULAR VOLUME (BEAKER) (test ytpw=111) 90.1 fL 79.4-94.8 MEAN CORPUSCULAR HEMOGLOBIN (BEAKER) (test qahc=820) 28.6 pg 25.6-32.2 MEAN CORPUSCULAR HEMOGLOBIN CONC (BEAKER) (test uqxx=532) 31.7 GM/DL 32.2-35.5 RED CELL DISTRIBUTION WIDTH (BEAKER) (test yyqx=485) 14.4 % 11.7-14.4 PLATELET COUNT (BEAKER) (test ogio=674) 303 K/CU MM 150-450 MEAN PLATELET VOLUME (BEAKER) (test eixr=420) 10.5 fL 9.4-12.3 NUCLEATED RED BLOOD CELLS (BEAKER) (test pput=741) 0 /100 WBC 0-0 NEUTROPHILS RELATIVE PERCENT (BEAKER) (test gbkc=331) 66 % LYMPHOCYTES RELATIVE PERCENT (BEAKER) (test uakp=056) 24 % MONOCYTES RELATIVE PERCENT (BEAKER) (test qmlv=943) 9 % EOSINOPHILS RELATIVE PERCENT (BEAKER) (test btja=250) 1 % BASOPHILS RELATIVE PERCENT (BEAKER) (test hwvp=555) 0 % NEUTROPHILS ABSOLUTE COUNT (BEAKER) (test gclt=679) 6.63 K/ L 1.56-6.13 LYMPHOCYTES ABSOLUTE COUNT (BEAKER) (test gbyt=529) 2.38 K/ L 1.18-3.74 MONOCYTES ABSOLUTE COUNT (BEAKER) (test yvxt=016) 0.92 K/ L 0.24-0.36 EOSINOPHILS ABSOLUTE COUNT (BEAKER) (test cmul=562) 0.06 K/ L 0.04-0.36 BASOPHILS ABSOLUTE COUNT (BEAKER) (test clqa=791) 0.04 K/ L 0.01-0.08 IMMATURE GRANULOCYTES-RELATIVE PERCENT (BEAKER) (test qwim=4735) 0 % 0-1 CT ABDOMEN/PELVIS [id number] 08:07:00 [place] [address] Patient Name: BRITTANIE CARTER MR #: [id number] : 1935 Age/Sex: 83/F Req #: [id number] Adm Physician: Ordered by: JOSE FRANCISCO CERVANTES MD Report #: [id number] Location: ER Room/Bed: Procedure: [id number] CT/CT ABDOMEN/PELVIS WO Exam Date: 06/30/18 Exam Time: 074 0 REPORT STATUS: Signed EXAM: CT Abdomen and Pelvis WITHOUT contrast INDICATION: Nausea and vomiting, abdomi nal pain COMPARISON: None. TECHNIQUE: Abdomen and pelvis were scanned utiliz ing a multidetector helical scanner from the lung base to the pubic symphysis without administration of IV contrast. Absence of intravenous contrast decreas es sensitivity for detection of focal lesions and vascular pathology. Coronal and sagittal reformations were obtained. Routine protocol was performed. Dose modulation, iterative reconstruction, and/or weight based adjustment of the mA/kV was utilized to reduce the radiation dose to as low as reasonably ac hievable. IV CONTRAST: None. ORAL CONTRAST: 25 c c Gastrografin RADIATION DOSE: Total DLP: 199.78 mGy*cm Estimated effective dose: (DLP x 0.015 x size factor) mSv COM PLICATIONS: None FINDINGS: LINES and TUBES: None. LOWER THORAX: Partially visualized groundglass opacity at the left lung base may represent a telectasis or pneumonia. Heart size normal. Small hiatus hernia. HEPATOBILI ALLISON: There is a calcified granuloma in the liver. No focal hepatic lesions. N o biliary ductal dilation. GALLBLADDER: Surgical absence of the gallbladde r with cholecystectomy clips. SPLEEN: No splenomegaly. PANCREA S: No focal masses or ductal dilatation. ADRENALS: No adrenal nodules KIDNEYS/URETERS: There is marked left hydronephrosis with dilatation of t he ureter that can be traced into the left pelvis near the uterus. Specific etiology of apparent distal ureteral obstruction is not determined. There is c ortical scarring of the lateral right kidney with a 1.3 cm hypodensity, with a ppearance and internal density measurement suggesting cyst. No other contour d eforming cystic or solid mass lesions. No stones. GI TRACT: There is diffu se mild distention of small bowel with distal small bowel loops measuring up t o 3.2 cm diameter. In the distal jejunum there is a discrete 1.9 cm filling de fect in a small bowel loop (series 2, image 42; series 301, image 39) which is indeterminate, likely representing ingested material although small bowel doreen yp is also a consideration. There is a large volume of stool throughout the co rito and rectum. The appendix is not conspicuously identified. There are colonic diverticula with no CT evidence for acute diverticulitis. PELVIC ORGANS/BLADDER: Urinary bladder appears unremarkable. The uterus is retroverte d with calcifications suggesting fibroid uterus. No discrete abnormal mass or fluid collection in the pelvis. LYMPH NODES: No dominant lymph node mass is seen in the abdomen, retroperitoneum or pelvis, VESSELS: The abdominal a tarsha is atherosclerotic with extensive calcified plaque distally and extending into the iliac arteries. No abdominal aortic aneurysm. PERITONEUM / RETROP ERITONEUM: No pneumoperitoneum or ascites. BONES: No acute or suspicious kajal ny lesions. Degenerative changes are seen in the lumbar spine. Lumbar scoliosi s is noted. SOFT TISSUES: Superficial surrounding soft tissue shows an appa rent left femoral hernia containing fat. In the anterior midline lower abdomen and pelvis there is subcutaneous stranding and subcutaneous air likely related to recent surgery. No discrete drainable fluid collection is seen. IMPRESSION: 1. Diffuse small bowel distention with large volume of stool throughout the colon. In view of history of recent surgery, this likely re presents small bowel ileus, less likely early distal obstruction. Correlation with clinical findings suggested. 2. Marked left hydronephrosis and dila tation of the left ureter traced to the pelvic level near the uterus. Etiology of apparent distal ureteral obstruction is not determined. 3. 1.9 cm fi lling defect in distal jejunal loop may be related to ingested material or sma ll bowel polyp. 4. Airspace opacity at the left lung base may represent at electasis or pneumonia. 5. Small left femoral hernia containing fat. 6. Subcutaneous air in the anterior midline lower abdomen and pelvis likely related to recent surgery. Correlation with surgical history recommended. Staff: [place] Signed by: Dr. Scott Nieto M.D. on 06/30/2018 8:27 AM Dictated By: SCOTT NIETO MD 6 Transcribed By: GEORGIE on 06/30/18826 COPY TO: JOSE FRANCISCO CERVANTES MD CHEST SINGLE (PORTABLE)2018-06-30 06:45:00 [place] [address] Patient Name: BRITTANIE CARTER MR #: [id number] : 1935 Age/Sex: 83/F Req #: [id number] Adm Physician: Ordered by: JOSE FRANCISCO CERVANTES MD Report #: [id number] Location: ER Room/Bed: Procedure: [id number] DX/DAREN ST SINGLE (PORTABLE) Exam Date: Exam Time: REPORT STATUS: Signed EXAMINATION: DAREN ST SINGLE (PORTABLE) INDICATION: N/V ABD PAIN COMPARISON: N one FINDINGS: AP view TUBES and LINES: None. LUNGS: Alix ngs are well inflated. Patchy airspace opacities bilaterally with platelike at electasis in the left lung base. PLEURA: No pleural effusion or pneumothor ax. HEART AND MEDIASTINUM: The cardiomediastinal silhouette is unremarkabl e. BONES AND SOFT TISSUES: No acute osseous lesion. Right humeral head deformity. Soft tissues are unremarkable. UPPER ABDOMEN: No free air und er the diaphragm. IMPRESSION: Patchy airspace opacities bilaterally especially in the left lung base with platelike atelectasis in the left lung b ase. This likely represents pneumonia. Signed by: Dr. Brayden Villalba M.D. on 6:45 AM Dictated By: BRAYDEN VILLALBA MD 4 Transcribed By: GEORGIE on 06/30/18644 COPY TO: JOSE FRANCISCO CERVANTES MD
--- NOTE | 2018-08-15 10:22 | NUR ---
URINE CUP GIVEN FOR CLEAN CATCH UA
[2018-08-15 10:43] LABS: BILIRUBIN,URINE NEGATIVE (NEGATIVE); CLARITY,URINE CLEAR (CLEAR); COLOR,URINE YELLOW (YELLOW); KETONES,URINE NEGATIVE (NEGATIVE); NITRITE,URINE NEGATIVE (NEGATIVE); PROTEIN,URINE DIPSTICK TRACE (NEGATIVE); URINE UROBILINOGEN 1 mg/dL (0.2 - 1)
[2018-08-15 10:51] LABS: LEUKOCYTE ESTERASE ,URINE TRACE (NEGATIVE)
[2018-08-15 10:57] LABS: BACTERIA,URINE MODERATE /HPF; EPITHELIAL CELLS,URINE FEW /LPF
[2018-08-15] MEDS ORDERED: CIPROFLOXACIN 500 MG TAB PO ONE (11:45)
--- NOTE | 2018-08-15 12:14 | Diagnostic Imaging Report ---
Exam: KUB - 2 views Clinical History: Constipation. Comparison: CT abdomen/pelvis without contrast 06/30/2018. Findings: There are mildly dilated small bowel loops, measuring up to 3.7 cm. Air-fluid levels are present on upright view. Air and stool are seen within a nondistended colon. There is a large amount of stool within the rectum. No evidence of free intraperitoneal air. Status post cholecystectomy. There is a left-sided percutaneous nephroureteral stent with the proximal pigtail overlying the expected location of the left kidney and the distal pigtail overlying the expected location of the bladder. Levoconvex scoliosis of the lumbar spine. Atherosclerotic vascular calcifications. Impression: Findings suggestive of partial small bowel obstruction. Large amount of stool within the rectum, which could reflect fecal impaction. Signed by: Dr. Collin Simon MD on 08/15/2018 12:11 PM
[2018-08-15] MEDS ORDERED: MINERAL OIL 132 ML BTL PR ONE (13:45)
[2018-08-15] MEDS ORDERED: CITRATE OF MAGNESIA 300ML BOTTLE PO ONE (13:45)
== END 2018-08-15 14:00 | disposition home or self-care (01) ==
LOC: ER 10:14
DX: K59.00 Constipation, unspecified (principal); N39.0 Urinary tract infection, site not specified; F17.200 Nicotine dependence, unspecified, uncomplicated; M41.9 Scoliosis, unspecified
CPT/HCPCS: 74019; 81001; 99284